=== PATIENT | female | born 1940 | race Asian ===

== ENCOUNTER 2020-12-14 08:39 | Inpatient (IN) | payer MEDICARE, OTHER ==
[2020-12-14] VITALS (8 sets, daily range): BP systolic 103–125; BP diastolic 31–67
[~2020-12-14] VITALS: Ht 160 cm; Wt 99.1 kg
[2020-12-14 10:05] LABS: BASO # 0.1 x10^3/uL (0.0-0.2); BASO % 2 % (0-3); EOS # 0.2 x10^3/uL (0.0-0.7); EOS % 6 % (0-3); HEMOGLOBIN 7.1 g/dL (12.0-15.5); LYMPH # 0.8 x10^3/uL (1.0-4.8); LYMPH % 18 % (24-48); MEAN CORPUSCULAR HEMOGLOBIN 32 pg (25-35); MEAN CORPUSCULAR HGB CONC 35 g/dL (31-37); MEAN CORPUSCULAR VOLUME 91 fL (79-100); MONO # 0.6 x10^3/uL (0.0-1.1); MONO % 14 % (0-9); NEUT # 2.7 x10^3/uL (1.8-7.7); NEUT % 61 % (31-73); PLATELET COUNT 221 x10^3/uL (140-400); RED BLOOD COUNT 2.23 x10^6/uL (3.50-5.40); RED CELL DISTRIBUTION WIDTH 16.9 % (11.5-14.5); WHITE BLOOD COUNT 4.4 x10^3/uL (4.0-11.0)
[2020-12-14 10:16] LABS: ANION GAP 5 (6-14); BLOOD UREA NITROGEN 55 mg/dL (7-20); BUN/CREATININE RATIO 25 (6-20); CALCIUM 7.7 mg/dL (8.5-10.1); CARBON DIOXIDE 27 mmol/L (21-32); CHLORIDE 90 mmol/L (98-107); CREATININE 2.2 mg/dL (0.6-1.0); GFR 21.6; GLUCOSE 94 mg/dL (70-99); POTASSIUM 4.7 mmol/L (3.5-5.1); SODIUM 122 mmol/L (136-145)
--- NOTE | 2020-12-14 10:20 | NUR ---
SOLANGE Garcia informed of critical Hct 20.4
[2020-12-14 10:21] LABS: ALBUMIN 2.2 g/dL (3.4-5.0); ALBUMIN/GLOBULIN RATIO 0.5 (1.0-1.7); ALK PHOS 69 U/L (46-116); AST (SGOT) 21 U/L (15-37); TOTAL BILIRUBIN 1.4 mg/dL (0.2-1.0); TOTAL PROTEIN 6.3 g/dL (6.4-8.2)
[2020-12-14 10:23] LABS: ALT (SGPT) < 6 U/L (14-59)
--- NOTE | 2020-12-14 10:25 | HP ---
DATE OF SERVICE: 12/14/2020 ADMIT DATE: 12/14/2020 HISTORY OF PRESENT ILLNESS: The patient is a 80-year-old female who is currently residing at [facility] after prolonged stay at [facility] where she was admitted on 11/16/2020 with septic shock due to complicated urinary tract infection. At that time, she was found to have ureteral stone and incidental right kidney mass. She also developed acute hypoxic respiratory failure and left side pleural effusion and acute diastolic congestive heart failure with an ejection fraction of 60-65%. While there, she also developed atrial fibrillation and acute on chronic kidney injury. She was treated with IV antibiotic and apparently had ureteric stent. She also developed non-ST segment elevation myocardial infarction requiring cardiac catheterization and stent deployment. Her stay was complicated by left lower extremity DVT, for which she was started on Xarelto and she did have also hypothyroidism and hyponatremia. However, after stabilization, she was transferred to [facility] to continue the process of rehabilitation. While there, her serum sodium was noted to be steadily declining. I saw her on 12/11 and her sodium was 127 and yesterday her sodium dropped down to 120 mEq per liter and therefore, the patient was transferred to [facility] for further evaluation and treatment. She was also diagnosed with C. diff colitis, for which we started her on oral vancomycin 125 mg 4 times a day with lactobacillus acidophilus twice a day. She continued to have loose bowel movement and her perianal area is markedly excoriated. She was admitted to [facility] for fluid restriction and to consult the Nephrology team to assist with the management of her worsening hyponatremia. We will continue obviously with oral vancomycin and other medications. PAST MEDICAL HISTORY: Significant for insulin-dependent diabetes mellitus complicated by retinopathy, neuropathy as well as nephropathy. The patient has stone in her left ureter, chronic kidney disease, chronic diastolic congestive heart failure, left lower extremity DVT, hypothyroidism. PAST SURGICAL HISTORY: Significant for breast biopsy, hysterectomy for endometrial cancer. She has also had left retroperitoneal hematoma while at the [facility]. ALLERGIES: SHE IS ALLERGIC TO LISINOPRIL, SULFA ANTIBIOTICS, AVOCADO AND TOMATO. MEDICATIONS: She is currently on following medications: She is on acetaminophen 500 mg every 4 hours as needed, amiodarone 200 mg once a day, atorvastatin calcium 80 mg at bedtime, cyclobenzaprine 5 mg 3 times a day, Humalog insulin 4 units subcutaneously before meals. She is on Januvia 25 mg once a day, lactobacillus acidophilus 1 capsule twice a day. She is on Lantus SoloStar 20 units twice a day. She is on levothyroxine 100 mcg once a day, loperamide 2 mg as needed for diarrhea, not to exceed 16 mg a day. She is on [place] 5/325 mg 1 tablet every 4 hours. She is on tamsulosin 0.4 mg once a day at bedtime, Toprol-XL 25 mg once a day. She is on vancomycin 125 mg p.o. 4 times a day, Xarelto 15 mg by mouth twice a day for 3 weeks and Xarelto 20 mg daily thereafter. REVIEW OF SYSTEMS: The patient stated that she is generally feeling much better compared to when she was at [facility]; however, she continued to have low back pain and continues to have loose bowel movement. PHYSICAL EXAMINATION: GENERAL: On examining her, she was pale, but not jaundiced or cyanosed. No thyromegaly. No jugular venous distention. She had bilateral lower limb edema. VITAL SIGNS: Her heart rate was 54, blood pressure was 103/37, her temperature was 98.5, oxygen saturation was 97% on room air. HEAD, EYES, EARS, NOSE AND THROAT: Showed she is normocephalic, atraumatic. NECK: Supple. HEART: Showed normal first and second heart sounds. No gallop, rub or murmur. CHEST: Shows central trachea, equal bilateral chest expansion, air entry, vesicular breath sounds. I could not appreciate any crepitation or rhonchi anteriorly. ABDOMEN: Distended, soft, nontender. NEUROLOGIC: She was awake, alert, responding appropriately. All her cranial nerves intact. Extremities: She moves all extremities without difficulty. She has marked periorbital edema and also bilateral lower extremity edema. SKIN: Her perianal area is markedly excoriated. ASSESSMENT AND PLAN: In summary, this is a 80-year-old female patient, a resident at [facility] who was admitted directly on account of worsening hyponatremia, continued recurrent bouts of loose bowel movement due to her Clostridium difficile colitis and worsening kidney function. My plan is obviously to continue with oral vancomycin. Continue with all her other medications. We will institute fluid restriction and will consult the mailmaster to assist with her management. RADHA DR: Jose Alfredo TID: [id number]
[2020-12-14 10:27] LABS: HEMATOCRIT 20.4 % (36.0-47.0)
[2020-12-14] MEDS ORDERED: ACET500T68 PO (11:29)
[2020-12-14] MEDS ORDERED: VANC125C3 PO (11:29)
[2020-12-14] MEDS ORDERED: AMIO200T53 PO (11:29)
[2020-12-14] MEDS ORDERED: HYDR-2759 PO (11:29)
[2020-12-14] MEDS ORDERED: METO-239 PO (11:29)
[2020-12-14] MEDS ORDERED: INSU100V8 SQ (11:29)
[2020-12-14] MEDS ORDERED: LIPITOR80 MG PO (11:29)
[2020-12-14] MEDS ORDERED: RIVA15TA PO (11:29)
[2020-12-14] MEDS ORDERED: LACT1CAP2 PO (11:29)
[2020-12-14] MEDS ORDERED: CYCL5TAB PO (11:29)
[2020-12-14] MEDS ORDERED: INSU100V6 SQ (11:29)
[2020-12-14] MEDS ORDERED: LEVO-101 PO (11:29)
[2020-12-14] MEDS ORDERED: SITA25TA PO (11:29)
[2020-12-14] MEDS ORDERED: TAMS0.4C97 PO (11:29)
[2020-12-14] MEDS ORDERED: ACETAMINOPHEN 500 MG TABLET PO PRN (11:30)
[2020-12-14] MEDS ORDERED: HYDROcodone/APAP 5/325MG 1 TAB TABLET PO PRN (11:30)
[2020-12-14] MEDS: AMIODARONE HCL 200 MG TABLET. PO SCH (12:00)
[2020-12-14] MEDS: RIVAROXABAN 15 MG TABLET. PO SCH ×2 (12:00→21:37)
[2020-12-14] MEDS: INSULIN LISPRO 300 UNITS/3 ML VIAL. SQ SCH ×2 (12:00→17:29)
[2020-12-14] MEDS ORDERED: CYCLOBENZAPRINE 10 MG TABLET. PO PRN (12:00)
[2020-12-14] MEDS: VANCOMYCIN 125 MG/2.5 ML ORAL SOLUTION. PO SCH ×3 (12:23→21:37)
[2020-12-14 12:44] LABS: % BANDS 4 % (0-9); % EOS 6 % (0-5); % LYMPHS 7 % (24-48); % METAS 1 % (0-0); % MONOS 15 % (0-10); % SEGS 67 % (35-66)
[2020-12-14 12:45] LABS: PLT ESTIMATE ADEQUATE (ADEQUATE)
--- NOTE | 2020-12-14 12:56 | RAD ---
INDICATION: Reason: worsening anemia on Xarelto with history of retroperitoneal bleeding / Spl. Instr uctions: / History: . COMPARISON: November 16, 2020 CT abdomen TECHNIQUE: Axial CT images obtained through the chest, abdomen and pelvis without contrast. One or more of the following individualized dose reduction techniques were utilized for this examinat ion: 1. Automated exposure control; 2. Adjustment of the mA and/or kV according to patient size; 3 . Use of iterative reconstruction technique. FINDINGS: Limited assessment of solid organ structures and vasculature secondary to lack of intravenous contras t. Mild patchy opacity at the left greater than right lung base with trace left pleural effusion. Fat-containing lesion within the musculature posterior to the left scapula measuring 24 mm which can be seen with causes such as lipoma. No pneumothorax. Calcific atherosclerosis throughout the vasculature including severe coronary artery calcific atheros clerosis. There is edema in the subcutaneous soft tissues bilaterally. Degenerative changes throughout the spine. Calcific atherosclerosis throughout the abdominal aorta. Subcutaneous edema to the fat. Gallstones are seen. Limited assessment of the pancreas without contrast. Spleen is visualized. Distention of the bilateral renal pelvis and ureter with left-sided nephroureteral stents. Urinary bladder is also dilated with urine and a small amount of air. Soft tissue lesion of the right kidney measuring approximately 23 mm. Interval development of a retroperitoneal hemorrhage on the left measuring approximately 18.5 cm cran iocaudal with maximum axial diameter of approximately 14 x 7 cm. This is seen throughout a large port ion of the abdomen and pelvis and displaces the left kidney anteriorly. There is a small amount of fr ee fluid within the left lower quadrant. Wall thickening of the rectum with some adjacent edema to the fat. There is a suspected small focus o f air within the retroperitoneal hemorrhage. No dilated loops of bowel to suggest obstruction. Degenerative changes of the hips. Multilevel central canal and neural foraminal stenosis from degenerative changes of spine. IMPRESSION: * Large left-sided retroperitoneal hemorrhage. * Severe dilatation of the urinary bladder with bilateral hydroureter and hydronephrosis. Would trena elate with renal function since bladder outlet obstruction or poor emptying could have this appearanc e. * Gallstone. * Wall thickening of the rectosigmoid region with adjacent edema to the fat. Would correlate with sy mptoms to ensure there is not a pathologic cause such as a distal colitis or lesion involving the dis darrel sigmoid to rectal region. Follow-up could be obtained to ensure this resolves. * Soft tissue density mass at the right kidney. The patient will need a follow-up nonemergent CT, MR I or ultrasound renal protocol to further assess since solid renal neoplasm such as oncocytoma or claudine al cell carcinoma could have this appearance. * Mild patchy airspace opacities left greater than right lung as well as trace left pleural effusion . The opacities could be from atelectasis or infiltrate. * Results called to the patient's floor at 12:50 PM on date of exam. Electronically signed by: Shin Coffman MD (12/14/2020 12:54 PM) [id number]
--- NOTE | 2020-12-14 15:58 | PDOC2 ---
CONSULT Date of Consult Date of Consult DATE: 12/14/20 TIME: 15:23 Reason for Consult Reason for Consult: CHRIS, HypoNatremia Referring Physician Referring Physician: Dr. Hess Identification/Chief Complaint Chief Complaint " I dont want to take any meds for increasing sodium levels if possible as they make me sick" Source Source: Chart review, Patient History of Present Illness Reason for Visit: Patient is a 80-year-old female who is currently residing at [facility] after prolonged complicated stay at [facility] where she was admitted on 11/16/2020 with septic shock due to complicated urinary tract infection. At that time, she was found to have ureteral stone and incidental right kidney mass. She was treated with IV antibiotic , seen by urology and had a ureteric stent She also developed acute hypoxic respiratory failure and left side pleural effusion and acute diastolic congestive heart failure with an ejection fraction of 60-65%. She also had a new onset atrial fibrillation. She required cardiac catheterization and PCI for non-ST segment elevation myocardial infarction . Her stay was further complicated by left lower extremity DVT, for which she was started on Xarelto She developed left retroperitoneal hematoma while at the [facility] She was seen by Deflector Operator for acute (Cr 2.4) on chronic kidney injury, and HypoNatremia - Na of 126 After stabilization, she was transferred to [facility] for rehabilitation. At the Rehab it was noted that her serum sodium was declining - on reviewing avilable records her Na was between 125 to 127 It was noted yesterday Na was down to 120 mEq/Lt and she was transferred to [facility] for further evaluation and treatment. She is also diagnosed with C. diff colitis and was started on oral vancomycin 125 at the Rehab with lactobacillus acidophilus twice a day. She continued to have loose bowel movement . She states she has at least 3 stools /day or more. Denies any N/V. No abdominal pain . No CP or SOB. She states prior to all this - admisison to [facility]- she was only on 4 meds . At [facility] she was on ALdactone as well. As per most current list she is not on Diuretics, No Antidepressants . Reports eating Normal diet .States drinks enough fluids, doesnt think it is excessive . Has LE edema bilateral Patient reports Dasilva was removed at [place] , had to be placed again at [facility] Past Medical History Past Medical History Significant for insulin-dependent diabetes mellitus complicated by retinopathy, neuropathy as well as nephropathy. The patient has stone in her left ureter, chronic kidney disease, chronic diastolic congestive heart failure, left lower extremity DVT, hypothyroidism. Past Surgical History Past Surgical History Significant for breast biopsy, hysterectomy for endometrial cancer. She has also had left retroperitoneal hematoma while at the [facility]. Current Medications Current Medications Allergies Allergies: Coded Allergies: Sulfa (Sulfonamide Antibiotics) (Verified Allergy, Intermediate, 12/14/20) avocado (Verified Allergy, Intermediate, 12/14/20) lisinopril (Verified Allergy, Intermediate, 12/14/20) tomato (Verified Allergy, Intermediate, 12/14/20) ROS Review of System As per HPI, rest of the ROS is negative Physical Exam Physical Exam General NAD , Obese HEEN OM moist, anicteric NECK: Supple. Lungs CTA, decreased at bases, Non labored, on RA CV S1S2 Abd Soft, NT, Obese Neuro : AXO x3, grossly normal Extremities: Bilat LE edema 2 + SKIN: perianal area is markedly excoriated (exam by primary) Dasilva + , No CVA or SP tenderness Vital Signs Vital Signs Date Time Temp Pulse Resp B/P (MAP) Pulse Ox O2 Delivery O2 Flow Rate FiO2 12/14/20 11:00 98.7 60 20 117/67 (84) 96 Room Air 98.7 Assessment & Plan CHRIS on CKD - Diagnosed recently in Nov during Hospitalization at [facility] (Cr 2.4) - 2/2 Urosepsis/Pyelonephritis /Recd Contrast for Cardiac cath / Hypotensive etc Creat on 12/09 2.7 --> 2.[address] scan Severe dilatation of the urinary bladder with bilateral hydroureter and hydronephrosis. Supportive care, strict I/O, Avoid nephrotoxins, Monitor HypoNatremia - Na at [facility] 126(no prior labs, patient denies Low Na in the past) ,UOsm was low at [facility] , Recent Na 122 Urinary retention (Dasilva was dced at [place], placed again at [facility] She reports DID not toleratE ? salt tablets .No Dx of CHF or Cirrhosis, No ETOH intake, Not on Psych meds , Diuretics held .Currently asymptomatic Recommend restrict fluid intake to 1500 mls , Monitor Soft tissue density mass at the right kidney. The patient will need a follow-up nonemergent CT, MRI or ultrasound renal protocol to further assess since solid renal neoplasm such as oncocytoma or renal cell carcinoma could have this appearance. Urology was consulted at [facility] Anemia - Hx of Retroperitoneal bleed recently at [facility]. Defer to Primary. CT scan at [facility] Large left-sided retroperitoneal hemorrhage. Defer to primary for fu Clostridium difficile colitis CAD recent Cardiac cath /PCI at [facility] New Dx of AFib at [facility] S/P Lt Thoracentesis Nov 2020 Recent Septic shock 2/2 Pyelonephritis and Lt Ureterolithiasis Labs Labs Laboratory Tests Test 12/14/20 09:37 12/14/20 09:50 12/14/20 11:59 Glucose (Fingerstick) 106 mg/dL (70-99) 135 mg/dL (70-99) White Blood Count 4.4 x10^3/uL (4.0-11.0) Red Blood Count 2.23 x10^6/uL (3.50-5.40) Hemoglobin 7.1 g/dL (12.0-15.5) Hematocrit 20.4 % (36.0-47.0) Mean Corpuscular Volume 91 fL (79-100) Mean Corpuscular Hemoglobin 32 pg (25-35) Mean Corpuscular Hemoglobin Concent 35 g/dL (31-37) Red Cell Distribution Width 16.9 % (11.5-14.5) Platelet Count 221 x10^3/uL (140-400) Neutrophils (%) (Auto) 61 % (31-73) Lymphocytes (%) (Auto) 18 % (24-48) Monocytes (%) (Auto) 14 % (0-9) Eosinophils (%) (Auto) 6 % (0-3) Basophils (%) (Auto) 2 % (0-3) Neutrophils # (Auto) 2.7 x10^3/uL (1.8-7.7) Lymphocytes # (Auto) 0.8 x10^3/uL (1.0-4.8) Monocytes # (Auto) 0.6 x10^3/uL (0.0-1.1) Eosinophils # (Auto) 0.2 x10^3/uL (0.0-0.7) Basophils # (Auto) 0.1 x10^3/uL (0.0-0.2) Segmented Neutrophils % 67 % (35-66) Band Neutrophils % 4 % (0-9) Lymphocytes % 7 % (24-48) Monocytes % 15 % (0-10) Eosinophils % 6 % (0-5) Metamyelocytes % 1 % (0-0) Platelet Estimate Adequate (ADEQUATE) Sodium Level 122 mmol/L (136-145) Potassium Level 4.7 mmol/L (3.5-5.1) Chloride Level 90 mmol/L (98-107) Carbon Dioxide Level 27 mmol/L (21-32) Anion Gap 5 (6-14) Blood Urea Nitrogen 55 mg/dL (7-20) Creatinine 2.2 mg/dL (0.6-1.0) Estimated GFR (Cockcroft-Gault) 21.6 BUN/Creatinine Ratio 25 (6-20) Glucose Level 94 mg/dL (70-99) Calcium Level 7.7 mg/dL (8.5-10.1) Total Bilirubin 1.4 mg/dL (0.2-1.0) Aspartate Amino Transf (AST/SGOT) 21 U/L (15-37) Alanine Aminotransferase (ALT/SGPT) < 6 U/L (14-59) Alkaline Phosphatase 69 U/L (46-116) Total Protein 6.3 g/dL (6.4-8.2) Albumin 2.2 g/dL (3.4-5.0) Albumin/Globulin Ratio 0.5 (1.0-1.7) Laboratory Tests Test 12/14/20 09:37 12/14/20 09:50 12/14/20 11:59 Glucose (Fingerstick) 106 mg/dL (70-99) 135 mg/dL (70-99) White Blood Count 4.4 x10^3/uL (4.0-11.0) Red Blood Count 2.23 x10^6/uL (3.50-5.40) Hemoglobin 7.1 g/dL (12.0-15.5) Hematocrit 20.4 % (36.0-47.0) Mean Corpuscular Volume 91 fL (79-100) Mean Corpuscular Hemoglobin 32 pg (25-35) Mean Corpuscular Hemoglobin Concent 35 g/dL (31-37) Red Cell Distribution Width 16.9 % (11.5-14.5) Platelet Count 221 x10^3/uL (140-400) Neutrophils (%) (Auto) 61 % (31-73) Lymphocytes (%) (Auto) 18 % (24-48) Monocytes (%) (Auto) 14 % (0-9) Eosinophils (%) (Auto) 6 % (0-3) Basophils (%) (Auto) 2 % (0-3) Neutrophils # (Auto) 2.7 x10^3/uL (1.8-7.7) Lymphocytes # (Auto) 0.8 x10^3/uL (1.0-4.8) Monocytes # (Auto) 0.6 x10^3/uL (0.0-1.1) Eosinophils # (Auto) 0.2 x10^3/uL (0.0-0.7) Basophils # (Auto) 0.1 x10^3/uL (0.0-0.2) Segmented Neutrophils % 67 % (35-66) Band Neutrophils % 4 % (0-9) Lymphocytes % 7 % (24-48) Monocytes % 15 % (0-10) Eosinophils % 6 % (0-5) Metamyelocytes % 1 % (0-0) Platelet Estimate Adequate (ADEQUATE) Sodium Level 122 mmol/L (136-145) Potassium Level 4.7 mmol/L (3.5-5.1) Chloride Level 90 mmol/L (98-107) Carbon Dioxide Level 27 mmol/L (21-32) Anion Gap 5 (6-14) Blood Urea Nitrogen 55 mg/dL (7-20) Creatinine 2.2 mg/dL (0.6-1.0) Estimated GFR (Cockcroft-Gault) 21.6 BUN/Creatinine Ratio 25 (6-20) Glucose Level 94 mg/dL (70-99) Calcium Level 7.7 mg/dL (8.5-10.1) Total Bilirubin 1.4 mg/dL (0.2-1.0) Aspartate Amino Transf (AST/SGOT) 21 U/L (15-37) Alanine Aminotransferase (ALT/SGPT) < 6 U/L (14-59) Alkaline Phosphatase 69 U/L (46-116) Total Protein 6.3 g/dL (6.4-8.2) Albumin 2.2 g/dL (3.4-5.0) Albumin/Globulin Ratio 0.5 (1.0-1.7) Review All relevant outside records, renal labs, imaging studies, telemetry/EKG's were reviewed. Images Images worsening anemia on Xarelto with history of retroperitoneal bleeding PROCEDURE: CT CHEST ABDOMEN PELVIS WO INDICATION: Reason: worsening anemia on Xarelto with history of retroperitoneal bleeding / Spl. Instructions: / History: . COMPARISON: November 16, 2020 CT abdomen TECHNIQUE: Axial CT images obtained through the chest, abdomen and pelvis without contrast. One or more of the following individualized dose reduction techniques were utilized for this examination: 1. Automated exposure control; 2. Adjustment of the mA and/or kV according to patient size; 3. Use of iterative reconstruction technique. FINDINGS: Limited assessment of solid organ structures and vasculature secondary to lack of intravenous contrast. Mild patchy opacity at the left greater than right lung base with trace left pleural effusion. Fat-containing lesion within the musculature posterior to the left scapula measuring 24 mm which can be seen with causes such as lipoma. No pneumothorax. Calcific atherosclerosis throughout the vasculature including severe coronary artery calcific atherosclerosis. There is edema in the subcutaneous soft tissues bilaterally. Degenerative changes throughout the spine. Calcific atherosclerosis throughout the abdominal aorta. Subcutaneous edema to the fat. Gallstones are seen. Limited assessment of the pancreas without contrast. Spleen is visualized. Distention of the bilateral renal pelvis and ureter with left-sided nephroureteral stents. Urinary bladder is also dilated with urine and a small amount of air. Soft tissue lesion of the right kidney measuring approximately 23 mm. Interval development of a retroperitoneal hemorrhage on the left measuring approximately 18.5 cm craniocaudal with maximum axial diameter of approximately 14 x 7 cm. This is seen throughout a large portion of the abdomen and pelvis and displaces the left kidney anteriorly. There is a small amount of free fluid within the left lower quadrant. Wall thickening of the rectum with some adjacent edema to the fat. There is a suspected small focus of air within the retroperitoneal hemorrhage. No dilated loops of bowel to suggest obstruction. Degenerative changes of the hips. Multilevel central canal and neural foraminal stenosis from degenerative changes of spine. IMPRESSION: * Large left-sided retroperitoneal hemorrhage. * Severe dilatation of the urinary bladder with bilateral hydroureter and hydronephrosis. Would correlate with renal function since bladder outlet obstruction or poor emptying could have this appearance. * Gallstone. * Wall thickening of the rectosigmoid region with adjacent edema to the fat. Would correlate with symptoms to ensure there is not a pathologic cause such as a distal colitis or lesion involving the distal sigmoid to rectal region. Follow-up could be obtained to ensure this resolves. * Soft tissue density mass at the right kidney. The patient will need a follow- up nonemergent CT, MRI or ultrasound renal protocol to further assess since solid renal neoplasm such as oncocytoma or renal cell carcinoma could have this appearance. * Mild patchy airspace opacities left greater than right lung as well as trace left pleural effusion. The opacities could be from atelectasis or infiltrate. * Results called to the patient's floor at 12:50 PM on date of exam. VAUGHN GROVES MD Dec 14, 2020 15:58
--- NOTE | 2020-12-14 16:06 | NUR ---
PT Screen completed. After review of medical chart and speaking with the RN, pt. would benefit from PT Evaluation to further assess PT needs. Please issue orders for PT/OT. Thank you
[2020-12-14 18:43] LABS: RED BLOOD COUNT 2.09 x10^6/uL (3.50-5.40); RED CELL DISTRIBUTION WIDTH 17.1 % (11.5-14.5); WHITE BLOOD COUNT 4.7 x10^3/uL (4.0-11.0)
[2020-12-14 18:48] LABS: HEMATOCRIT 19.1 % (36.0-47.0); HEMOGLOBIN 6.7 g/dL (12.0-15.5)
[2020-12-14] MEDS: TAMSULOSIN 0.4 MG CAP.ER.24H. PO SCH (21:36)
[2020-12-14] MEDS: LACTOBACILLUS RHAMNOSUS GG 1 CAPSULE. PO SCH (21:36)
[2020-12-14] MEDS: ATORVASTATIN CALCIUM 40 MG TABLET. PO SCH (21:37)
[2020-12-14] MEDS: METOPROLOL SUCC 24HR ER 25 MG TAB.ER.24H. PO SCH (21:48)
[2020-12-14] MEDS: INSULIN GLARGINE SYRINGE. SQ SCH (21:48)
[2020-12-15] VITALS (8 sets, daily range): BP systolic 83–169; BP diastolic 29–70
[2020-12-15 07:52] LABS: CALCIUM 7.7 mg/dL (8.5-10.1); CREATININE 1.9 mg/dL (0.6-1.0); GFR 25.6; POTASSIUM 4.8 mmol/L (3.5-5.1)
[2020-12-15] MEDS: INSULIN LISPRO 300 UNITS/3 ML VIAL. SQ SCH ×3 (08:00→17:00)
[2020-12-15] MEDS: RIVAROXABAN 15 MG TABLET. PO SCH ×2 (09:00→18:57)
[2020-12-15] MEDS: AMIODARONE HCL 200 MG TABLET. PO SCH (09:00)
[2020-12-15] MEDS: METOPROLOL SUCC 24HR ER 25 MG TAB.ER.24H. PO SCH (09:00)
[2020-12-15] MEDS: LEVOTHYROXINE 100 MCG TABLET PO SCH (09:09)
[2020-12-15] MEDS: LACTOBACILLUS RHAMNOSUS GG 1 CAPSULE. PO SCH ×2 (09:09→21:40)
[2020-12-15] MEDS: LINAGLIPTIN 5 MG TABLET PO SCH (09:09)
[2020-12-15] MEDS: VANCOMYCIN 125 MG/2.5 ML ORAL SOLUTION. PO SCH ×4 (09:10→21:40)
[2020-12-15] MEDS: INSULIN GLARGINE SYRINGE. SQ SCH ×2 (09:15→21:48)
[2020-12-15 09:26] LABS: HEMATOCRIT 23.2 % (36.0-47.0); HEMOGLOBIN 8.1 g/dL (12.0-15.5); RED BLOOD COUNT 2.56 x10^6/uL (3.50-5.40); RED CELL DISTRIBUTION WIDTH 16.4 % (11.5-14.5); WHITE BLOOD COUNT 4.5 x10^3/uL (4.0-11.0)
--- NOTE | 2020-12-15 11:42 | PDOC2 ---
CONSULT Date of Consult Date of Consult DATE: 12/15/20 TIME: 11:41 Reason for Consult Reason for Consult: Paroxysmal atrial fibrillation Referring Physician Referring Physician: Dr. Hess Identification/Chief Complaint Chief Complaint Hyponatremia Source Source: Chart review, Patient History of Present Illness Reason for Visit: 80-year-old female was recently admitted 11/16/2020 to [facility] with UTI/sepsis and was found to have ureteral stone. She was also found to be in acute on chronic diastolic heart failure, atrial fibrillation and non-STEMI. She apparently had a nuclear stress test at that time. Based on patient's description, she converted to sinus rhythm and was started on amiodarone for rhythm maintenance. She was also found to have left lower extremity DVT and was started on Xarelto which were later stopped due to retroperitoneal hematoma. She was transferred to [facility] and rehab where she was noted to have steadily declining sodium levels and was transferred to [facility] for further management. She was recently diagnosed with C. difficile colitis and treated with oral vancomycin. She continues to complain of loose bowel movements but denied any chest pain, orthopnea/PND, palpitations or syncope. Past Medical History Past Medical History Diabetes mellitus type 2, insulin-dependent, complicated by retinopathy, neuropathy and nephropathy Nephrolithiasis Chronic kidney disease Chronic diastolic heart failure Recent diagnosis of paroxysmal atrial fibrillation DVT Hypertension Hypothyroidism C. difficile colitis Past Surgical History Past Surgical History Breast biopsy Hysterectomy Family History Family History Not contributory Social History Social History Patient is a non-smoker nondrinker Current Medications Current Medications Current Medications Acetaminophen (Tylenol) 500 mg PRN Q4HRS PRN PO pain or fever; Start 12/14/20 at 11:30 Amiodarone HCl (Cordarone) 200 mg DAILY PO ; Start 12/14/20 at 12:00 Acetaminophen/ Hydrocodone Bitart (Lortab 5/325) 1 tab PRN Q4HRS PRN PO PAIN; Start 12/14/20 at 11:30 Insulin Glargine (Lantus Syringe) 20 unit BID SQ Last administered on 12/15/20at 09:15; Start 12/14/20 at 21:00 Insulin Human Lispro (HumaLOG) 4 units TIDWMEALS SQ Last administered on 12/14/20at 17:29; Start 12/14/20 at 12:00 Levothyroxine Sodium (Synthroid) 100 mcg DAILY PO Last administered on 12/15/20at 09:09; Start 12/15/20 at 09:00 Metoprolol Succinate (Toprol Xl) 25 mg DAILY PO ; Start 12/14/20 at 21:00 Rivaroxaban (Xarelto) 15 mg BID PO ; Start 12/14/20 at 12:00 Tamsulosin HCl (Flomax) 0.4 mg HS PO Last administered on 12/14/20at 21:36; Start 12/14/20 at 21:00 Atorvastatin Calcium (Lipitor) 80 mg QHS PO Last administered on 12/14/20at 21:37; Start 12/14/20 at 21:00 Cyclobenzaprine HCl (Flexeril) 10 mg PRN Q8HRS PRN PO MUSCLE SPASMS; Start 12/14/20 at 12:00 Lactobacillus Rhamnosus (Culturelle) 1 cap BID PO Last administered on 12/15/20at 09:09; Start 12/14/20 at 21:00 Linagliptin (Tradjenta) 5 mg DAILY PO Last administered on 12/15/20at 09:09; Start 12/15/20 at 09:00 Vancomycin HCl (Vancomycin Oral Solution) 125 mg [id number] PO Last administered on 12/15/20at 09:10; Start 12/14/20 at 13:00 Active Scripts Active Reported Xarelto (Rivaroxaban) 15 Mg Tablet 1 Tab PO BID 21 Days Vancomycin Hcl 125 Mg Capsule 1 Cap PO QID 10 Days Metoprolol Succinate ( Xl ) (Metoprolol Succinate) 25 Mg Tab.er.24h 1 Tab PO BID Flomax (Tamsulosin Hcl) 0.4 Mg Cap.er.24h 1 Cap PO HS Hydrocodone-Acetamin 5-325 mg (Hydrocodone/Acetaminophen) 1 Each Tablet 1 Each PO PRN Q4HRS PRN Synthroid (Levothyroxine Sodium) 100 Mcg Tablet 1 Tab PO DAILY Lantus (Insulin Glargine,Hum.rec.anlog) 100 Unit/1 Ml Vial 20 Unit SQ BID Acidophilus (Lactobacillus Acidophilus) 1 Each Capsule 1 Cap PO BID 14 Days Januvia (Sitagliptin Phosphate) 25 Mg Tablet 25 Mg PO DAILY Humalog (Insulin Lispro) 100 Unit/1 Ml Vial 4 Unit SQ TIDWMEALS Cyclobenzaprine Hcl 5 Mg Tablet 1 Tab PO PRN TID PRN Lipitor (Atorvastatin Calcium) 80 Mg Tablet 1 Tab PO HS Amiodarone Hcl 200 Mg Tablet 1 Tab PO DAILY Acetaminophen 500 Mg Tablet 1 Tab PO PRN Q4HRS PRN 15 Days Allergies Allergies: Coded Allergies: Sulfa (Sulfonamide Antibiotics) (Verified Allergy, Intermediate, 12/14/20) avocado (Verified Allergy, Intermediate, 12/14/20) lisinopril (Verified Allergy, Intermediate, 12/14/20) tomato (Verified Allergy, Intermediate, 12/14/20) ROS PSYCHOLOGICAL ROS: No: Hallucinations Eyes: No Loss of vision HEENT: No: Epistaxis Respiratory: No: Hemoptysis Cardiovascular: No Chest Pain Gastrointestinal: Yes Diarrhea; No Vomiting Genitourinary: No Hematuria Neurological: No Seizures Skin: No Rash Physical Exam General: Alert, No acute distress HEENT: Atraumatic Lungs: Clear to auscultation Heart: Regular rate Abdomen: Soft, No tenderness Extremities: Other (1-2+ pitting edema) Neuro: Normal speech Psych/Mental Status: Mood NL Vitals VITALS Vital Signs Date Time Temp Pulse Resp B/P (MAP) Pulse Ox O2 Delivery O2 Flow Rate FiO2 12/15/20 09:00 62 83/29 12/15/20 07:00 98.1 20 96 Room Air 98.1 Labs Labs Laboratory Tests Test 12/14/20 09:37 12/14/20 09:50 12/14/20 11:59 12/14/20 16:53 Glucose (Fingerstick) 106 mg/dL (70-99) 135 mg/dL (70-99) 149 mg/dL (70-99) White Blood Count 4.4 x10^3/uL (4.0-11.0) Red Blood Count 2.23 x10^6/uL (3.50-5.40) Hemoglobin 7.1 g/dL (12.0-15.5) Hematocrit 20.4 % (36.0-47.0) Mean Corpuscular Volume 91 fL (79-100) Mean Corpuscular Hemoglobin 32 pg (25-35) Mean Corpuscular Hemoglobin Concent 35 g/dL (31-37) Red Cell Distribution Width 16.9 % (11.5-14.5) Platelet Count 221 x10^3/uL (140-400) Neutrophils (%) (Auto) 61 % (31-73) Lymphocytes (%) (Auto) 18 % (24-48) Monocytes (%) (Auto) 14 % (0-9) Eosinophils (%) (Auto) 6 % (0-3) Basophils (%) (Auto) 2 % (0-3) Neutrophils # (Auto) 2.7 x10^3/uL (1.8-7.7) Lymphocytes # (Auto) 0.8 x10^3/uL (1.0-4.8) Monocytes # (Auto) 0.6 x10^3/uL (0.0-1.1) Eosinophils # (Auto) 0.2 x10^3/uL (0.0-0.7) Basophils # (Auto) 0.1 x10^3/uL (0.0-0.2) Segmented Neutrophils % 67 % (35-66) Band Neutrophils % 4 % (0-9) Lymphocytes % 7 % (24-48) Monocytes % 15 % (0-10) Eosinophils % 6 % (0-5) Metamyelocytes % 1 % (0-0) Platelet Estimate Adequate (ADEQUATE) Sodium Level 122 mmol/L (136-145) Potassium Level 4.7 mmol/L (3.5-5.1) Chloride Level 90 mmol/L (98-107) Carbon Dioxide Level 27 mmol/L (21-32) Anion Gap 5 (6-14) Blood Urea Nitrogen 55 mg/dL (7-20) Creatinine 2.2 mg/dL (0.6-1.0) Estimated GFR (Cockcroft-Gault) 21.6 BUN/Creatinine Ratio 25 (6-20) Glucose Level 94 mg/dL (70-99) Calcium Level 7.7 mg/dL (8.5-10.1) Total Bilirubin 1.4 mg/dL (0.2-1.0) Aspartate Amino Transf (AST/SGOT) 21 U/L (15-37) Alanine Aminotransferase (ALT/SGPT) < 6 U/L (14-59) Alkaline Phosphatase 69 U/L (46-116) Total Protein 6.3 g/dL (6.4-8.2) Albumin 2.2 g/dL (3.4-5.0) Albumin/Globulin Ratio 0.5 (1.0-1.7) Test 12/14/20 18:00 12/14/20 20:11 12/15/20 06:50 12/15/20 07:37 White Blood Count 4.7 x10^3/uL (4.0-11.0) 4.5 x10^3/uL (4.0-11.0) Red Blood Count 2.09 x10^6/uL (3.50-5.40) 2.56 x10^6/uL (3.50-5.40) Hemoglobin 6.7 g/dL (12.0-15.5) 8.1 g/dL (12.0-15.5) Hematocrit 19.1 % (36.0-47.0) 23.2 % (36.0-47.0) Mean Corpuscular Volume 92 fL (79-100) 91 fL (79-100) Mean Corpuscular Hemoglobin 32 pg (25-35) 32 pg (25-35) Mean Corpuscular Hemoglobin Concent 35 g/dL (31-37) 35 g/dL (31-37) Red Cell Distribution Width 17.1 % (11.5-14.5) 16.4 % (11.5-14.5) Platelet Count 206 x10^3/uL (140-400) 208 x10^3/uL (140-400) Glucose (Fingerstick) 161 mg/dL (70-99) 128 mg/dL (70-99) Sodium Level 124 mmol/L (136-145) Potassium Level 4.8 mmol/L (3.5-5.1) Chloride Level 93 mmol/L (98-107) Carbon Dioxide Level 28 mmol/L (21-32) Anion Gap 3 (6-14) Blood Urea Nitrogen 43 mg/dL (7-20) Creatinine 1.9 mg/dL (0.6-1.0) Estimated GFR (Cockcroft-Gault) 25.6 Glucose Level 98 mg/dL (70-99) Calcium Level 7.7 mg/dL (8.5-10.1) Laboratory Tests Test 12/14/20 11:59 12/14/20 16:53 12/14/20 18:00 12/14/20 20:11 Glucose (Fingerstick) 135 mg/dL (70-99) 149 mg/dL (70-99) 161 mg/dL (70-99) White Blood Count 4.7 x10^3/uL (4.0-11.0) Red Blood Count 2.09 x10^6/uL (3.50-5.40) Hemoglobin 6.7 g/dL (12.0-15.5) Hematocrit 19.1 % (36.0-47.0) Mean Corpuscular Volume 92 fL (79-100) Mean Corpuscular Hemoglobin 32 pg (25-35) Mean Corpuscular Hemoglobin Concent 35 g/dL (31-37) Red Cell Distribution Width 17.1 % (11.5-14.5) Platelet Count 206 x10^3/uL (140-400) Test 12/15/20 06:50 12/15/20 07:37 White Blood Count 4.5 x10^3/uL (4.0-11.0) Red Blood Count 2.56 x10^6/uL (3.50-5.40) Hemoglobin 8.1 g/dL (12.0-15.5) Hematocrit 23.2 % (36.0-47.0) Mean Corpuscular Volume 91 fL (79-100) Mean Corpuscular Hemoglobin 32 pg (25-35) Mean Corpuscular Hemoglobin Concent 35 g/dL (31-37) Red Cell Distribution Width 16.4 % (11.5-14.5) Platelet Count 208 x10^3/uL (140-400) Sodium Level 124 mmol/L (136-145) Potassium Level 4.8 mmol/L (3.5-5.1) Chloride Level 93 mmol/L (98-107) Carbon Dioxide Level 28 mmol/L (21-32) Anion Gap 3 (6-14) Blood Urea Nitrogen 43 mg/dL (7-20) Creatinine 1.9 mg/dL (0.6-1.0) Estimated GFR (Cockcroft-Gault) 25.6 Glucose Level 98 mg/dL (70-99) Calcium Level 7.7 mg/dL (8.5-10.1) Glucose (Fingerstick) 128 mg/dL (70-99) Assessment/Plan Assessment/Plan 1. Paroxysmal atrial fibrillation: Presently in sinus rhythm. Continue amiodarone for rhythm maintenance. She is a poor candidate for long-term anticoagulation secondary to retroperitoneal hematoma. Recent 2D echo showed LVEF 60 to 65%. We will consider outpatient referral for left atrial appendage closure. 2. Chronic diastolic heart failure: Appears to be clinically well compensated. Her bilateral lower extremity edema is probably secondary to hypoalbuminemia. She is currently on fluid restriction secondary to hyponatremia. If edema worsens, will consider albumin infusion and Lasix. 3. Recent non-STEMI: Most probably demand ischemia. Nuclear stress test apparently was normal. We will obtain records from [facility]. 4. Acute on chronic renal insufficiency: CT abdomen showed bilateral hydronephrosis and hydroureters. Nephrology team following. 5. Hyponatremia: Agree with fluid restriction 6. Hypertension: Controlled 7. Recent DVT: Consider IVC filter placement since she is a poor candidate for long-term anticoagulation 8. Hypothyroidism: Continue levothyroxine 9. Hyperlipidemia: Continue statins 10. Diabetes mellitus type 2: Treat per IM 11. C. difficile colitis: On oral vancomycin Thank you for your consultation RIKI RENDON MD Dec 15, 2020 11:42
--- NOTE | 2020-12-15 12:53 | PDOC ---
DATE OF SERVICE DATE: 12/15/20 TIME: 12:52 SUBJECTIVE ROS stable , No complaints OBJECTIVE Vital Signs Vital Signs Date Time Temp Pulse Resp B/P (MAP) Pulse Ox O2 Delivery O2 Flow Rate FiO2 12/15/20 11:00 98.9 67 20 116/35 (62) 95 Room Air 98.9 I & 0 Intake and Output 12/15/20 07:00 Intake Total 750 ml Output Total 3500 ml Balance -2750 ml Intake Oral 720 ml Blood Product IV Normal Saline Flush 30 ml Output Urine Total 3500 ml # Bowel Movements 2 PHYSICAL EXAM Physical Exam General NAD , Obese HEEN OM moist, anicteric NECK: Supple. Lungs CTA, decreased at bases, Non labored, on RA CV S1S2 Abd Soft, NT, Obese Neuro : AXO x3, grossly normal Extremities: Bilat LE edema 2 + SKIN: perianal area is markedly excoriated (exam by primary) Dasilva + , No CVA or SP tenderness DIAGNOSIS/ASSESSMENT Assessment & Plan CHRIS on CKD - Diagnosed recently in Nov during Hospitalization at [facility] (Cr 2.4) - 2/2 Urosepsis/Pyelonephritis /Recd Contrast for Cardiac cath / Hypotensive etc Creat on 12/09 2.7 --> 2.2 -->1.9 Ct scan Severe dilatation of the urinary bladder with bilateral hydroureter and hydronephrosis. Supportive care, strict I/O, Avoid nephrotoxins, Monitor HypoNatremia - Na at [facility] 126(no prior labs, patient denies Low Na in the past) ,UOsm was low at [facility] , Na 120 POA , Urinary retention (Dasilva was dced at [place], placed again at [facility] -, Na improved to 124, Diuretics held .Currently asymptomatic. Restrict free fluid intake to 1500 mls , Start IV NS - dw RN Soft tissue density mass at the right kidney. The patient will need a follow-up nonemergent CT, MRI or ultrasound renal protocol to further assess since solid renal neoplasm such as oncocytoma or renal cell carcinoma could have this appearance. Urology was consulted at [facility] Anemia - Hx of Retroperitoneal bleed recently at [facility]. Defer to Primary. CT scan at [facility] Large left-sided retroperitoneal hemorrhage. Defer to primary for fu Clostridium difficile colitis CAD recent Cardiac cath /PCI at [facility] New Dx of AFib at [facility] S/P Lt Thoracentesis Nov 2020 Recent Septic shock 2/2 Pyelonephritis and Lt Ureterolithiasis COMMENT/RELEVANT DATA Meds Current Medications Medications (Trade) Dose Ordered Sig/Jose Alberto Start Time Stop Time Status Last Admin Dose Admin Acetaminophen (Tylenol) 500 mg PRN Q4HRS PRN 12/14/20 11:30 Acetaminophen/ Hydrocodone Bitart (Lortab 5/325) 1 tab PRN Q4HRS PRN 12/14/20 11:30 Amiodarone HCl (Cordarone) 200 mg DAILY 12/14/20 12:00 Atorvastatin Calcium (Lipitor) 80 mg QHS 12/14/20 21:00 12/14/20 21:37 80 MG Cyclobenzaprine HCl (Flexeril) 10 mg PRN Q8HRS PRN 12/14/20 12:00 Insulin Glargine (Lantus Syringe) 20 unit BID 12/14/20 21:00 12/15/20 09:15 20 UNIT Insulin Human Lispro (HumaLOG) 4 units TIDWMEALS 12/14/20 12:00 12/15/20 12:08 4 UNITS Lactobacillus Rhamnosus (Culturelle) 1 cap BID 12/14/20 21:00 12/15/20 09:09 1 CAP Levothyroxine Sodium (Synthroid) 100 mcg DAILY 12/15/20 09:00 12/15/20 09:09 100 MCG Linagliptin (Tradjenta) 5 mg DAILY 12/15/20 09:00 12/15/20 09:09 5 MG Metoprolol Succinate (Toprol Xl) 25 mg DAILY 12/14/20 21:00 Rivaroxaban (Xarelto) 15 mg BID 12/14/20 12:00 Tamsulosin HCl (Flomax) 0.4 mg HS 12/14/20 21:00 12/14/20 21:36 0.4 MG Vancomycin HCl (Vancomycin Oral Solution) 125 mg [id number] 12/14/20 13:00 12/15/20 12:02 125 MG Lab Laboratory Tests Test 12/14/20 16:53 12/14/20 18:00 12/14/20 20:11 12/15/20 06:50 Glucose (Fingerstick) 149 mg/dL (70-99) 161 mg/dL (70-99) White Blood Count 4.7 x10^3/uL (4.0-11.0) 4.5 x10^3/uL (4.0-11.0) Red Blood Count 2.09 x10^6/uL (3.50-5.40) 2.56 x10^6/uL (3.50-5.40) Hemoglobin 6.7 g/dL (12.0-15.5) 8.1 g/dL (12.0-15.5) Hematocrit 19.1 % (36.0-47.0) 23.2 % (36.0-47.0) Mean Corpuscular Volume 92 fL (79-100) 91 fL (79-100) Mean Corpuscular Hemoglobin 32 pg (25-35) 32 pg (25-35) Mean Corpuscular Hemoglobin Concent 35 g/dL (31-37) 35 g/dL (31-37) Red Cell Distribution Width 17.1 % (11.5-14.5) 16.4 % (11.5-14.5) Platelet Count 206 x10^3/uL (140-400) 208 x10^3/uL (140-400) Sodium Level 124 mmol/L (136-145) Potassium Level 4.8 mmol/L (3.5-5.1) Chloride Level 93 mmol/L (98-107) Carbon Dioxide Level 28 mmol/L (21-32) Anion Gap 3 (6-14) Blood Urea Nitrogen 43 mg/dL (7-20) Creatinine 1.9 mg/dL (0.6-1.0) Estimated GFR (Cockcroft-Gault) 25.6 Glucose Level 98 mg/dL (70-99) Calcium Level 7.7 mg/dL (8.5-10.1) Test 12/15/20 07:37 12/15/20 11:47 Glucose (Fingerstick) 128 mg/dL (70-99) 155 mg/dL (70-99) Results All relevant outside records, renal labs, imaging studies, telemetry/EKG's were reviewed. Justicifation of Admission Dx: Justifications for Admission: Justification of Admission Dx: N/A VAUGHN GROVES MD Dec 15, 2020 12:53
--- NOTE | 2020-12-15 13:46 | PN ---
DATE: 12/15/2020 SUBJECTIVE: The patient is resting, slightly propped up in bed, in no apparent distress. She is awake and alert. On questioning her, she denied any complaint, in particular, denied any chest pain, shortness of breath, cough, phlegm or hemoptysis. The nursing staff stated that she continued to have loose bowel movement. Yesterday, she had about 5 episodes of diarrhea and this morning, she has one so far. Her H and H has dropped yesterday from 7.1 and 20.4 down to 6.7 and 19.1 and did receive 1 unit of packed RBCs. She was seen by the latin professor and she was put on a fluid restriction and her serum sodium has risen slightly from 120 to 124. PHYSICAL EXAMINATION: GENERAL: When I examined her this morning, she looked pale, not jaundiced, cyanosed, no lymphadenopathy, no thyromegaly, no jugular venous distention, but generalized anasarca. VITAL SIGNS: Her heart rate is 62, blood pressure was 83/29, temperature was 98.1, respiratory rate was 20 and oxygen saturation was 96% on room air. HEAD, EYES, EARS, NOSE AND THROAT: Normocephalic, atraumatic. NECK: Supple. HEART: Showed normal first and second heart sounds, no gallop, rub or murmur. CHEST: Shows central trachea. Good equal bilateral chest expansion, air entry, vesicular breath sounds. No crepitation or rhonchi. ABDOMEN: Distended, soft, nontender. NEUROLOGIC: She is awake, alert, responding appropriately. Cranial nerves intact. She moves extremities without difficulty. She does have an indwelling Dasilva catheter. EXTREMITIES: Examination of the lower extremities showed no clubbing or cyanosis, but bilateral lower limb edema. She does have also pressure ulcers on both gluteal areas. Her intake over the last 24 hours was 750, output was 3500. LABORATORY DATA: As of this morning, her serum sodium was 124, potassium 4.8, chloride 93, bicarbonate 28, anion gap of 3, BUN 43, and creatinine 1.9. Estimated GFR was 25 mL per minute. Her glucose was 98 and calcium was 7.7. As of yesterday, her white cell count was 4700, hemoglobin 6.7, hematocrit 19.1, MCV 92, and a platelet count 206,000. Today's labs are still pending at the time of this dictation. ASSESSMENT: This is a 80-year-old female patient, a resident at [facility] who was admitted directly to [facility] with: 1. Hyponatremia with a serum sodium of 120 that is improving and today it is 124 mEq per liter. 2. Acute on chronic kidney injury, multifactorial. The patient did have severe urinary tract infection and pyelonephritis. Did receive contrast for cardiac catheterization and was hypotensive at that time and her creatinine while at [facility] peaked at 2.7. On admission, she was 2.21. This morning, the creatinine came down to 1.9 mg/dL. 3. Bladder outlet obstruction with bilateral hydroureter and hydronephrosis, status post drainage draining about 1500 mL of urine. The patient has also ureteral stent on the left side. 4. Anemia. The patient has had large retroperitoneal hematoma, has multiple episodes of nosebleed as she is on Xarelto. She did receive 1 unit of packed RBCs yesterday. I held Xarelto. I have consulted the director of education as well as the founder ceo & president as she probably needs an IVC filter and probably a Watchman procedure. She went into atrial fibrillation with rapid ventricular response, treated with cardioversion at [facility]. 5. Clostridium difficile colitis, continued to have diarrhea and she is now on oral vancomycin. 6. Coronary artery disease, status post cardiac catheterization with PCI and stent deployment at [facility]. She does have also history of large left sided pleural effusion, status post thoracentesis on 11/2020. PLAN: To continue with fluid restriction. I will repeat her H and H this evening and if her hemoglobin is 7 or less than 7, we will transfuse her blood. The patient is now in sinus bradycardia, so we held her beta blockers. Meanwhile, we will continue to monitor her blood sugar and adjust insulin as needed. Continue with amiodarone. Continue with pain management. Continue with wound care. I have consulted the director of education as well as the founder ceo & president as I feel that the patient will benefit from an IVC filter as well as Watchman procedure given that she continued to bleed and has large retroperitoneal hematoma. LOGAN DR: Jose Alfredo TID: [id number]
[2020-12-15 14:59] LABS: BILIRUBIN,URINE NEGATIVE (NEG); CLARITY,URINE TURBID; COLOR,URINE YELLOW; NITRITE,URINE NEGATIVE (NEG); PROTEIN,URINE 30 mg/dL (NEG-TRACE); UROBILINOGEN,URINE 0.2 mg/dL (0.2 mg/dL)
[2020-12-15] MEDS: IV NORMAL SALINE 1000ML BAG 1,000 ML IV SCH (15:00)
[2020-12-15 15:19] LABS: BACTERIA,URINE MODERATE /HPF (0-FEW); RBC,URINE >40 /HPF (0-2); WBC,URINE FIELD OBSCURED /HPF (0-4); YEAST,URINE PRESENT /HPF
[2020-12-15 18:50] LABS: HEMATOCRIT 23.7 % (36.0-47.0); HEMOGLOBIN 8.2 g/dL (12.0-15.5)
[2020-12-15] MEDS: ATORVASTATIN CALCIUM 40 MG TABLET. PO SCH (21:40)
[2020-12-15] MEDS: TAMSULOSIN 0.4 MG CAP.ER.24H. PO SCH (21:41)
[2020-12-16 03:00] VITALS: BP 129/42
[2020-12-16] MEDS: IV NORMAL SALINE 1000ML BAG 1,000 ML IV SCH ×2 (04:50→21:35)
[2020-12-16 07:00] VITALS: BP 97/33
[2020-12-16 07:05] LABS: HEMATOCRIT 23.1 % (36.0-47.0); HEMOGLOBIN 8.1 g/dL (12.0-15.5); RED BLOOD COUNT 2.5 x10^6/uL (3.50-5.40); RED CELL DISTRIBUTION WIDTH 16.9 % (11.5-14.5); WHITE BLOOD COUNT 5.1 x10^3/uL (4.0-11.0)
[2020-12-16 07:26] LABS: ALBUMIN/GLOBULIN RATIO 0.5 (1.0-1.7); CALCIUM 7.6 mg/dL (8.5-10.1); CREATININE 1.6 mg/dL (0.6-1.0); GFR 31.2; POTASSIUM 4.5 mmol/L (3.5-5.1); TOTAL BILIRUBIN 1.2 mg/dL (0.2-1.0); TOTAL PROTEIN 5.7 g/dL (6.4-8.2)
[2020-12-16] MEDS: INSULIN LISPRO 300 UNITS/3 ML VIAL. SQ SCH ×3 (08:00→17:00)
[2020-12-16] MEDS: VANCOMYCIN 125 MG/2.5 ML ORAL SOLUTION. PO SCH ×4 (08:16→21:35)
[2020-12-16] MEDS: LACTOBACILLUS RHAMNOSUS GG 1 CAPSULE. PO SCH ×2 (08:16→21:35)
[2020-12-16] MEDS: LINAGLIPTIN 5 MG TABLET PO SCH (08:16)
[2020-12-16] MEDS: LEVOTHYROXINE 100 MCG TABLET PO SCH (08:16)
[2020-12-16] MEDS: RIVAROXABAN 15 MG TABLET. PO SCH (08:17)
[2020-12-16] MEDS: INSULIN GLARGINE SYRINGE. SQ SCH ×2 (09:29→21:47)
--- NOTE | 2020-12-16 10:14 | RAD ---
US BILATERAL LOWEREXTREMITY VENOUS DOPPLER History: Reason: RECENT DVT NOTED AT OTHER FACILITY; MAY NEED IVC FILTER PLACED / Spl. Instructions: / History: Comparison: None. Technique: Multiple longitudinal and transverse high resolution real-time images of the venous system of bilateral lower extremity were obtained with color and Doppler sampling. Findings: The common femoral, superficial femoral, popliteal and proximal calf veins are all patent and demonst rate normal flow and compressibility. Normal respiratory phasicity and augmentation is present. Bilateral lower extremity subcutaneous edema. Impression: 1. No evidence of deep vein thrombosis. Electronically signed by: Eliecer Farias DO (12/16/2020 10:12 AM) [id number]
--- NOTE | 2020-12-16 10:36 | PDOC ---
PROGRESS NOTES Date of Service: DATE: 12/16/20 TIME: 10:36 Subjective Subjective Feeling better today. Continues to have diarrhea. Objective Objective Vital Signs Date Time Temp Pulse Resp B/P (MAP) Pulse Ox O2 Delivery O2 Flow Rate FiO2 12/16/20 07:00 98.2 74 18 97/33 (54) 95 Room Air 98.2 Intake and Output 12/16/20 07:00 Output Total 4420 ml Balance -4420 ml Output Urine Total 4420 ml Physical Exam Abdomen: Soft, No tenderness Heart: Regular rate Extremities: Other (1-2+ pitting edema) General: Alert, No acute distress HEENT: Atraumatic Lungs: Clear to auscultation Neuro: Normal speech Psych/Mental Status: Mood NL Assessment Assessment 1. Paroxysmal atrial fibrillation: Presently in sinus rhythm. Continue amiodarone for rhythm maintenance. She is a poor candidate for long-term anticoagulation secondary to retroperitoneal hematoma. Recent 2D echo showed L VEF 60 to 65%. We will consider outpatient referral for left atrial appendage closure. 2. Chronic diastolic heart failure: Appears to be clinically well compensated. Her bilateral lower extremity edema is probably secondary to hypoalbuminemia. She is currently on fluid restriction secondary to hyponatremia. If edema worsens, will consider albumin infusion and Lasix. 3. Recent non-STEMI: Most probably demand ischemia. Nuclear stress test apparently was normal. We will obtain records from [facility]. 4. Acute on chronic renal insufficiency: CT abdomen showed bilateral hydronephrosis and hydroureters. Nephrology team following. 5. Hyponatremia: Sodium 128 today. Continue fluid restriction. 6. Hypertension: Controlled 7. Recent DVT: Consider IVC filter placement since she is a poor candidate for long-term anticoagulation 8. Hypothyroidism: Continue levothyroxine 9. Hyperlipidemia: Continue statins 10. Diabetes mellitus type 2: Treat per IM 11. C. difficile colitis: On oral vancomycin Comment Review of Relevant I have reviewed the following items chuck (where applicable) has been applied. Labs Laboratory Tests Test 12/15/20 11:47 12/15/20 14:15 12/15/20 16:42 12/15/20 18:10 Glucose (Fingerstick) 155 mg/dL (70-99) 129 mg/dL (70-99) Urine Collection Type Unknown Urine Color Yellow Urine Clarity Turbid Urine pH 6.0 (<5.0-8.0) Urine Specific [place] <=1.005 (1.000-1.030) Urine Protein 30 mg/dL (NEG-TRACE) Urine Glucose (UA) 100 mg/dL (NEG) Urine Ketones (Stick) Negative mg/dL (NEG) Urine Blood Large (NEG) Urine Nitrite Negative (NEG) Urine Bilirubin Negative (NEG) Urine Urobilinogen Dipstick 0.2 mg/dL (0.2 mg/dL) Urine Leukocyte Esterase Large (NEG) Urine RBC >40 /HPF (0-2) Urine WBC Field obscured /HPF (0-4) Urine Squamous Epithelial Cells Few /LPF Urine Bacteria Moderate /HPF (0-FEW) Urine Yeast Present /HPF Hemoglobin 8.2 g/dL (12.0-15.5) Hematocrit 23.7 % (36.0-47.0) Test 12/15/20 20:18 12/16/20 05:30 Glucose (Fingerstick) 142 mg/dL (70-99) White Blood Count 5.1 x10^3/uL (4.0-11.0) Red Blood Count 2.50 x10^6/uL (3.50-5.40) Hemoglobin 8.1 g/dL (12.0-15.5) Hematocrit 23.1 % (36.0-47.0) Mean Corpuscular Volume 92 fL (79-100) Mean Corpuscular Hemoglobin 32 pg (25-35) Mean Corpuscular Hemoglobin Concent 35 g/dL (31-37) Red Cell Distribution Width 16.9 % (11.5-14.5) Platelet Count 204 x10^3/uL (140-400) Sodium Level 128 mmol/L (136-145) Potassium Level 4.5 mmol/L (3.5-5.1) Chloride Level 97 mmol/L (98-107) Carbon Dioxide Level 30 mmol/L (21-32) Anion Gap 1 (6-14) Blood Urea Nitrogen 33 mg/dL (7-20) Creatinine 1.6 mg/dL (0.6-1.0) Estimated GFR (Cockcroft-Gault) 31.2 BUN/Creatinine Ratio 21 (6-20) Glucose Level 84 mg/dL (70-99) Calcium Level 7.6 mg/dL (8.5-10.1) Total Bilirubin 1.2 mg/dL (0.2-1.0) Aspartate Amino Transf (AST/SGOT) 24 U/L (15-37) Alanine Aminotransferase (ALT/SGPT) 20 U/L (14-59) Alkaline Phosphatase 65 U/L (46-116) Total Protein 5.7 g/dL (6.4-8.2) Albumin 2.0 g/dL (3.4-5.0) Albumin/Globulin Ratio 0.5 (1.0-1.7) Thyroid Stimulating Hormone (TSH) 3.861 uIU/mL (0.358-3.74) Medications Current Medications Ascorbic Acid (Vitamin C) 500 mg DAILY PO ; Start 12/16/20 at 10:00 Multivitamins (Thera M Plus) 1 tab DAILY PO ; Start 12/16/20 at 10:00 Sodium Chloride 1,000 ml @ 75 mls/hr [id number] IV Last administered on 12/16/20at 04:50; Start 12/15/20 at 15:00 Vitals/I & O Vital Sign - Last 24 Hours 12/15/20 12/15/20 12/15/20 12/15/20 11:00 15:00 19:00 20:00 Temp 98.9 98.5 98.2 98.9 98.5 98.2 Pulse 67 73 74 Resp 20 20 18 B/P (MAP) 116/35 (62) 133/40 (71) 124/37 (66) Pulse Ox 95 96 100 O2 Delivery Room Air Room Air Room Air Room Air 12/15/20 12/16/20 12/16/20 23:00 03:00 07:00 Temp 98.1 98.2 98.2 98.1 98.2 98.2 Pulse 71 75 74 Resp 20 18 18 B/P (MAP) 121/45 (70) 129/42 (71) 97/33 (54) Pulse Ox 96 94 95 O2 Delivery Room Air Room Air Room Air Intake and Output 12/15/20 12/15/20 12/16/20 15:00 23:00 07:00 Output Total 1520 ml 950 ml 1950 ml Balance -1520 ml -950 ml -1950 ml RIKI RENDON MD Dec 16, 2020 10:36
--- NOTE | 2020-12-16 10:38 | PDOC ---
Renal-Progress Notes Subjective Notes Notes NO NEW COMPLAINTS History of Present Illness Hx of present illness STABLE Vitals Vitals Vital Signs Date Time Temp Pulse Resp B/P (MAP) Pulse Ox O2 Delivery O2 Flow Rate FiO2 12/16/20 07:00 98.2 74 18 97/33 (54) 95 Room Air 98.2 Weight Weight [ ] I.O. Intake and Output Intake and Output 12/16/20 07:00 Output Total 4420 ml Balance -4420 ml Output Urine Total 4420 ml Labs Labs Laboratory Tests Test 12/15/20 11:47 12/15/20 14:15 12/15/20 16:42 12/15/20 18:10 Glucose (Fingerstick) 155 mg/dL (70-99) 129 mg/dL (70-99) Urine Collection Type Unknown Urine Color Yellow Urine Clarity Turbid Urine pH 6.0 (<5.0-8.0) Urine Specific [place] <=1.005 (1.000-1.030) Urine Protein 30 mg/dL (NEG-TRACE) Urine Glucose (UA) 100 mg/dL (NEG) Urine Ketones (Stick) Negative mg/dL (NEG) Urine Blood Large (NEG) Urine Nitrite Negative (NEG) Urine Bilirubin Negative (NEG) Urine Urobilinogen Dipstick 0.2 mg/dL (0.2 mg/dL) Urine Leukocyte Esterase Large (NEG) Urine RBC >40 /HPF (0-2) Urine WBC Field obscured /HPF (0-4) Urine Squamous Epithelial Cells Few /LPF Urine Bacteria Moderate /HPF (0-FEW) Urine Yeast Present /HPF Hemoglobin 8.2 g/dL (12.0-15.5) Hematocrit 23.7 % (36.0-47.0) Test 12/15/20 20:18 12/16/20 05:30 Glucose (Fingerstick) 142 mg/dL (70-99) White Blood Count 5.1 x10^3/uL (4.0-11.0) Red Blood Count 2.50 x10^6/uL (3.50-5.40) Hemoglobin 8.1 g/dL (12.0-15.5) Hematocrit 23.1 % (36.0-47.0) Mean Corpuscular Volume 92 fL (79-100) Mean Corpuscular Hemoglobin 32 pg (25-35) Mean Corpuscular Hemoglobin Concent 35 g/dL (31-37) Red Cell Distribution Width 16.9 % (11.5-14.5) Platelet Count 204 x10^3/uL (140-400) Sodium Level 128 mmol/L (136-145) Potassium Level 4.5 mmol/L (3.5-5.1) Chloride Level 97 mmol/L (98-107) Carbon Dioxide Level 30 mmol/L (21-32) Anion Gap 1 (6-14) Blood Urea Nitrogen 33 mg/dL (7-20) Creatinine 1.6 mg/dL (0.6-1.0) Estimated GFR (Cockcroft-Gault) 31.2 BUN/Creatinine Ratio 21 (6-20) Glucose Level 84 mg/dL (70-99) Calcium Level 7.6 mg/dL (8.5-10.1) Total Bilirubin 1.2 mg/dL (0.2-1.0) Aspartate Amino Transf (AST/SGOT) 24 U/L (15-37) Alanine Aminotransferase (ALT/SGPT) 20 U/L (14-59) Alkaline Phosphatase 65 U/L (46-116) Total Protein 5.7 g/dL (6.4-8.2) Albumin 2.0 g/dL (3.4-5.0) Albumin/Globulin Ratio 0.5 (1.0-1.7) Thyroid Stimulating Hormone (TSH) 3.861 uIU/mL (0.358-3.74) Review of Systems Constitutional: yes: weakness, alert, oriented Ears/Nose/Throat: Yes: no symptom reported Eyes: Yes: no symptom reported Pulmonary: Yes no symptom reported Cardiovascular: Yes edema Gastrointestional: Yes: no symptom reported Genitourinary: Yes: no symptom reported Skin: Yes no symptom reported Psychiatric/Neurological: Yes: no symptom reported Endocrine: Yes: no symptom reported Physical Exam General Appearance: no apparent distress Skin: warm Respiratory: decreased breath sounds Heart: S1S2 Abdomen: soft, bowel sounds present Genitourinary: bladder flat Extremities: pulses present, edema Neurology: alert, oriented Assessment Assessment IMP UTI CHRIS-CR OF 1.6 FROM 2.2-CAN FROM [facility] RELATED HYPONATREMIA-NA UP TO 128 BLADDER OUTLET OBSTRUCTION WITH HYDRONEPHROSIS S/P LEFT URETERAL STENT ANEMIA WITH RETROPERITONEAL HEMATOMA HX AFIB RVR C DIF CAD WITH PTCA/STENT PLAN CONT IVF FOR NOW WILL NEED DIURESIS SOON ANTIBIOTICS CARDIOLOGY EVAL PENDING D/W ATTENDING WILL FOLLOW CARMEN MEDINA MD Dec 16, 2020 10:38
--- NOTE | 2020-12-16 10:45 | NUR ---
Xarelto held due to patient has a hemorrhage.
[2020-12-16 11:00] VITALS: BP 121/44
--- NOTE | 2020-12-16 11:24 | CONS ---
DATE OF CONSULTATION: 12/16/2020 PULMONARY CONSULTATION ATTENDING PHYSICIAN: Zeynep Hess MD. REASON FOR CONSULTATION: History of DVT and retroperitoneal hemorrhage. HISTORY OF PRESENT ILLNESS: The patient is a 80-year-old female with a BMI of 36. The patient was at [facility] and then has a very prolonged hospital stay, then has been to [facility]. She was initially admitted on 11/16 with septic shock due to urinary tract infection. She was also found to have ureteral stone and incidental right kidney mass. The patient also reportedly had a left sided pleural effusion, which secondary to acute diastolic CHF. She had an EF of 60-65%. The patient also developed atrial fibrillation and acute on chronic kidney injury. The patient also had a non-ST segment myocardial infarction. She was also reportedly had left lower extremity DVT. She was treated with Xarelto. The patient was brought into the hospital with a complaint of some shortness of breath. She was noted to have a low sodium. The patient was weak. She was noted to have a retroperitoneal hemorrhage on her CT scan. The patient has no longer been on Xarelto. I have been asked to see her for further evaluation of the possibility of IVC filter. PAST MEDICAL HISTORY: Significant for insulin-dependent diabetes, history of retinopathy, neuropathy and nephropathy. History of left ureter history of chronic kidney disease, history of CHF, history of pleural effusion, history of left lower extremity DVT about a month ago, history of hypothyroidism. PAST SURGICAL HISTORY: Significant for breast biopsy, hysterectomy, endometrial cancer. She also had a left retroperitoneal hematoma while at [facility]. ALLERGIES: LISINOPRIL, SULFA AND AVOCADO AND TOMATO. MEDICATIONS: Reviewed as listed in the MRAD. REVIEW OF SYSTEMS: A 12-point system obtained. Pertinent positives discussed in my present illness, otherwise noncontributory. All systems that were negative were reviewed as well. SOCIAL HISTORY: She is a nonsmoker and nonalcoholic. PHYSICAL EXAMINATION: VITAL SIGNS: Reviewed. Pulse ox 95% on room air. NECK: Supple. LUNGS: Clear. CARDIOVASCULAR: With a regular rate. ABDOMEN: Soft, nontender. EXTREMITIES: With leg edema, mild. LABORATORY DATA: Reviewed. Her hemoglobin was 6.7 on admission, now 8.1. White cell count normal. Sodium 128. BUN 33 and creatinine 1.6. TSH 3.8. IMPRESSION: 1. The patient with a history of left lower extremity deep venous thrombosis at an outside facility over a month ago. She was treated with Xarelto, but she was having nosebleeds. She also developed a retroperitoneal hemorrhage at [facility]. She has been off of Xarelto. I repeated a venous Doppler of lower extremities today and she no longer has deep venous thrombosis. As such, I do not see a need for IVC filter. 2. No significant tobacco history. 3. Chronic kidney disease, question acute component. 4. History of urinary tract infection and septic shock. 5. History of a right kidney mass. Status post coiling. RECOMMENDATIONS: 1. I have discussed with Dr. Hess. At this time, there is no need for IVC filter since there is no evidence of DVT in her lower extremities venous Doppler 2. We will be available for any further recommendations. 3. Follow renal recommendation. 4. Follow cardiology recommendation regarding atrial fibrillation and any need for further treatment without anticoagulation. 5. We will see charity OSMAN DR: Silverio TID: [id number]
--- NOTE | 2020-12-16 11:30 | NUR ---
Wound/Ostomy Care Wound Type/Assessment: Patient seen per wound care consult. See wound assessment. 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 Patient stated she has been having multiple loose stools a day and there are many of those times where she is incontinent of her bowels. therefore causing wounds and irritation. Wound cleansed and assessed. Treatment Recommendations/Plan: Recommendations for Calazime cream or [place] cream which patient is requesting at this time. Patient stated she has tried the calazime and A&D ointment and neither has worked for her. Hansel okay with wound care if patient wishes to use instead of calazime. Patient encouraged to only sit on bottom for meals only and to lay from left to right while in bed. Education provided: patient on wound care and PU prevention. Offloading surface/device: Patient is currently on a P-500 bed, patient to turn every 2 hours, up in chair for meals only. Recommended Referrals/Tests: Patient may follow up with us in the wound clinic if patient wishes to do so after discharge/rehab. patient given clinic information and will call for appointment if needed. Discharge Recommendations for dressings: Dressing change instructions left in room. Wound care will follow up on per the patient request for reassessment. Patient's daughter to bring in Hansel for this patient. Patient in chair for lunch with call light in reach.
--- NOTE | 2020-12-16 12:27 | NUR ---
SW following. Discussed with RN. SW verified pt is a SNF resident at [facility], and can return when medically stable (after review), room air, ada deit. Therapy ordered. Pt will need a COVID test prior to discharge. BOBBY will continue to follow.
[2020-12-16] MEDS: MULTIVITAMIN with MINERAL TABLET. PO SCH (12:30)
[2020-12-16] MEDS: ASCORBIC ACID 500 MG TABLET PO SCH (12:30)
[2020-12-16] MEDS: METOPROLOL SUCC 24HR ER 25 MG TAB.ER.24H. PO SCH (12:34)
[2020-12-16] MEDS: AMIODARONE HCL 200 MG TABLET. PO SCH (12:35)
--- NOTE | 2020-12-16 14:25 | PN ---
DATE: 12/16/2020 SUBJECTIVE: The patient is resting, slightly propped up in bed, in no apparent respiratory distress, awake, and alert, stating she is anxious and frustrated. She has been in bed for a long time; however, on the good side, her H and H has been stable and her serum sodium has risen to 128, her creatinine came down to 1.6 mg. She was seen in consultation by the kidney specialist, news technical director as well as manager battery. Dr. Buenrostro ordered venous Doppler ultrasound of both lower extremities before proceeding with IVC filter and Dr. Esquivel recommended a Watchman procedure for her as she is bleeding and she has large retroperitoneal hematoma and has multiple episodes of epistaxis. PHYSICAL EXAMINATION: GENERAL: When I examined her this morning, she was pale, but not jaundiced or cyanosed. No lymphadenopathy. No thyromegaly. No jugular venous distention. Lower limb edema. VITAL SIGNS: Her heart rate was 74, blood pressure was 97/33, temperature was 98.2, respiratory rate was 18 and oxygen saturation was 95%. HEAD, EYES, EARS, NOSE, AND THROAT: Normocephalic, atraumatic. NECK: Supple. HEART: Showed normal first and second heart sounds. No gallop, rub or murmur. CHEST: Shows central trachea, equal bilateral expansion, air entry, vesicular breath sounds. No crepitation or rhonchi. ABDOMEN: Distended, soft, and nontender. She has an indwelling Dasilva catheter. She had two bowel movements last night. NEUROLOGIC: She is awake and alert, responding appropriately. Cranial nerves intact. She moves extremities without difficulty, although she is mostly bedbound. EXTREMITIES: She has multiple wounds, bilateral gluteal areas. Her intake over the last 24 hours was 750, output was 3500. LABORATORY DATA: This morning showed her white cell count to be 5100, hemoglobin 8.1, hematocrit 23, MCV 92 and platelet count 204,000. Her chemistry showed a serum sodium of 128, potassium 4.5, chloride 97, bicarbonate 30, anion gap of 1, BUN 33, and creatinine 1.6. Estimated GFR was 31 mL per minute. Her glucose was 84, calcium was 7.6. Total bilirubin, AST, ALT, and alkaline phosphatase were normal. Total protein was 5.7, albumin 2 and TSH was 3.861. ASSESSMENT: 1. Hyponatremia. The serum sodium has improved today to 128 mEq per liter. 2. Acute on chronic kidney injury, improving. Her serum creatinine is down to 1.6, it has peaked up to 2.7 as she had severe urinary tract infection and pyelonephritis. Did receive contrast for cardiac catheterization and was hypotensive while at [facility]. 3. Bladder outlet obstruction and bilateral hydroureter and hydronephrosis, status post drainage of about 1500 mL. She has an indwelling Dasilva catheter. She apparently has a ureteral stent to the left side. 4. Anemia due to blood loss as she has large retroperitoneal hematoma and has multiple episodes of nosebleed as she is on Xarelto. She did receive 1 unit of packed RBCs 2 days ago. I held her Xarelto. I have consulted the manager battery as well as the news technical director as she probably need an IVC filter and Watchman procedure. 5. She went into atrial fibrillation with rapid ventricular response that required cardioversion at [facility]. 6. Clostridium difficile colitis. The patient continued to be on isolation as she continued to have episodes of loose bowel movement. She is on oral vancomycin and lactobacillus. 7. Coronary artery disease, status post cardiac catheterization with PCI and stent deployment at [facility]. 8. She also has a history of large left sided pleural effusion, status post thoracentesis on 11/2020. PLAN: To continue with fluid restriction. Continue to monitor her H and H and transfuse her as needed. The patient is scheduled for bilateral lower extremity venous Doppler ultrasound to decide whether an IVC filter is warranted and Cardiology team recommended Watchman procedure as she continued to bleed and has large left sided retroperitoneal hematoma. LOGAN DR: Jose Alfredo TID: [id number]
[2020-12-16 15:00] VITALS: BP 140/46
[2020-12-16 18:50] LABS: HEMOGLOBIN 8.3 g/dL (12.0-15.5)
[2020-12-16 19:00] VITALS: BP 145/52
[2020-12-16] MEDS: TAMSULOSIN 0.4 MG CAP.ER.24H. PO SCH (21:35)
[2020-12-16] MEDS: ATORVASTATIN CALCIUM 40 MG TABLET. PO SCH (21:36)
[2020-12-16 22:36] VITALS: BP 134/62
[2020-12-17 03:00] VITALS: BP 105/32
[2020-12-17] MEDS: IV NORMAL SALINE 1000ML BAG 1,000 ML IV SCH ×2 (05:30→18:10)
[2020-12-17 06:41] LABS: HEMATOCRIT 23.5 % (36.0-47.0)
[2020-12-17 07:00] VITALS: BP 111/34
[2020-12-17 07:01] LABS: CALCIUM 7.5 mg/dL (8.5-10.1); CREATININE 1.5 mg/dL (0.6-1.0); GFR 33.6; POTASSIUM 4.6 mmol/L (3.5-5.1)
[2020-12-17] MEDS: LACTOBACILLUS RHAMNOSUS GG 1 CAPSULE. PO SCH ×2 (08:07→21:13)
[2020-12-17] MEDS: LINAGLIPTIN 5 MG TABLET PO SCH (08:07)
[2020-12-17] MEDS: MULTIVITAMIN with MINERAL TABLET. PO SCH (08:07)
[2020-12-17] MEDS: ASCORBIC ACID 500 MG TABLET PO SCH (08:07)
[2020-12-17] MEDS: LEVOTHYROXINE 100 MCG TABLET PO SCH (08:07)
[2020-12-17] MEDS: AMIODARONE HCL 200 MG TABLET. PO SCH (08:08)
[2020-12-17] MEDS: METOPROLOL SUCC 24HR ER 25 MG TAB.ER.24H. PO SCH (08:08)
[2020-12-17] MEDS: VANCOMYCIN 125 MG/2.5 ML ORAL SOLUTION. PO SCH ×4 (08:09→21:34)
[2020-12-17] MEDS: INSULIN LISPRO 300 UNITS/3 ML VIAL. SQ SCH ×3 (08:42→16:57)
--- NOTE | 2020-12-17 10:10 | PN ---
DATE: 12/17/2020 SUBJECTIVE: The patient is resting, slightly propped up in bed, in no apparent distress On questioning her, she denied any complaint. Nursing staff did not voice any concern, stated that she had uneventful night. She has 2 bowel movements overnight. She was seen by the physical and occupational therapist, has been ambulating with a walker. She is now on air loss mattress. PHYSICAL EXAMINATION: GENERAL: When I examined her, she looked pale, not jaundiced or cyanosed. No thyromegaly. No jugular venous distention. No limb edema. VITAL SIGNS: Her heart rate was 74, blood pressure is 111/34, temperature was 98, respiratory rate was 18 and oxygen saturation was 93% on room air. HEAD, EYES, EARS, NOSE AND THROAT: Normocephalic, atraumatic. NECK: Supple. HEART: Showed normal first and second heart sounds. No gallop, rub or murmur. CHEST: Clear to auscultation. No crepitation or rhonchi. ABDOMEN: Distended, soft, nontender. NEUROLOGIC: She was grossly intact. She had an indwelling Dasilva catheter. Her intake was incompletely recorded, output was 4420. LABORATORY DATA: As of this morning, her serum sodium was 131, potassium 4.6, chloride 100, bicarbonate 28, anion gap of 3, BUN 24, creatinine 1.5. Estimated GFR was 33 mL per minute. Her glucose 97, calcium was 7.5. Her hemoglobin and hematocrit remained stable around 8 and 24. ASSESSMENT: 1. Hyponatremia, improving slowly. Today's serum sodium was 131. 2. Acute on chronic kidney injury, improving. Her serum creatinine is down to 1.5 and has peaked up to 2.7. She had severe urinary tract infection, pyelonephritis. Did receive contrast for cardiac catheterization and was hypotensive while at [facility]. 3. Bladder outlet obstruction, bilateral hydroureter and hydronephrosis, status post drainage of about 1500 mL. She has an indwelling Dasilva catheter. She apparently has a ureteral stent to the left side. 4. Anemia due to blood loss. She has large left sided retroperitoneal hematoma and has had multiple episodes of nosebleeds as she is on Xarelto. She did receive 1 unit of packed RBCs and her hemoglobin and hematocrit are stable. 5. She had a venous Doppler ultrasound showed no evidence of deep vein thrombosis and Dr. Buenrostro recommended against anticoagulation. The Cardiology team who recommended a Watchman procedure. 6. The patient went into atrial fibrillation with rapid ventricular response that required cardioversion at [facility]. 7. Clostridium difficile colitis. The patient continued to have to be on isolation as she continued to have episodes of loose bowel movement. She is on oral vancomycin and lactobacillus. 8. Right coronary artery disease, status post cardiac catheterization with PCI and stent deployment at [facility] 9. History of large left sided pleural effusion, status post thoracentesis on 11/27/2020. PLAN: To continue with fluid restriction. Continue to monitor her H and H and transfuse her as needed. Her venous Doppler ultrasound showed no evidence of deep vein thrombosis and Dr. Buenrostro did not recommend placement of IVC filter. Meanwhile, we will continue with physical and occupational therapy and if she remains stable tomorrow, she can be discharged back to [facility] to continue the process of rehabilitation. CAROLIN DR: Jose Alfredo TID: [id number]
[2020-12-17] MEDS: INSULIN GLARGINE SYRINGE. SQ SCH ×2 (10:16→21:22)
--- NOTE | 2020-12-17 10:31 | PDOC ---
Renal-Progress Notes Subjective Notes Notes NO NEW COMPLAINTS History of Present Illness Hx of present illness STABLE Vitals Vitals Vital Signs Date Time Temp Pulse Resp B/P (MAP) Pulse Ox O2 Delivery O2 Flow Rate FiO2 12/17/20 08:08 74 111/34 12/17/20 07:00 98.0 18 93 Room Air 98.0 Weight Weight [ ] I.O. Intake and Output Intake and Output 12/17/20 07:00 Intake Total 2543 ml Output Total 2225 ml Balance 318 ml Intake Oral 1543 ml IV Total 1000 ml Output Urine Total 2225 ml # Voids 1 # Bowel Movements 2 Labs Labs Laboratory Tests Test 12/16/20 11:11 12/16/20 16:16 12/16/20 18:30 12/16/20 21:51 Glucose (Fingerstick) 121 mg/dL (70-99) 157 mg/dL (70-99) 189 mg/dL (70-99) Hemoglobin 8.3 g/dL (12.0-15.5) Hematocrit 24.0 % (36.0-47.0) Test 12/17/20 06:10 12/17/20 07:08 Hemoglobin 8.0 g/dL (12.0-15.5) Hematocrit 23.5 % (36.0-47.0) Sodium Level 131 mmol/L (136-145) Potassium Level 4.6 mmol/L (3.5-5.1) Chloride Level 100 mmol/L (98-107) Carbon Dioxide Level 28 mmol/L (21-32) Anion Gap 3 (6-14) Blood Urea Nitrogen 24 mg/dL (7-20) Creatinine 1.5 mg/dL (0.6-1.0) Estimated GFR (Cockcroft-Gault) 33.6 Glucose Level 97 mg/dL (70-99) Calcium Level 7.5 mg/dL (8.5-10.1) Glucose (Fingerstick) 134 mg/dL (70-99) Review of Systems Constitutional: yes: weakness, alert, oriented Ears/Nose/Throat: Yes: no symptom reported Eyes: Yes: no symptom reported Pulmonary: Yes no symptom reported Cardiovascular: Yes edema Gastrointestional: Yes: no symptom reported Genitourinary: Yes: no symptom reported Skin: Yes no symptom reported Psychiatric/Neurological: Yes: no symptom reported Endocrine: Yes: no symptom reported Physical Exam General Appearance: no apparent distress Skin: warm Respiratory: decreased breath sounds Heart: S1S2 Abdomen: soft, bowel sounds present Genitourinary: bladder flat Extremities: pulses present, edema Neurology: alert, oriented Assessment Assessment IMP UTI CHRIS-CR OF 1.5 FROM 2.2-CAN FROM [facility] RELATED HYPONATREMIA-NA UP TO 131 BLADDER OUTLET OBSTRUCTION WITH HYDRONEPHROSIS S/P LEFT URETERAL STENT ANEMIA WITH RETROPERITONEAL HEMATOMA HX AFIB RVR C DIF CAD WITH PTCA/STENT PLAN CONT IVF FOR NOW WILL NEED DIURESIS SOON ANTIBIOTICS CARDIOLOGY EVAL PENDING D/W ATTENDING WILL FOLLOW CARMEN MEDINA MD Dec 17, 2020 10:31
--- NOTE | 2020-12-17 10:47 | CONS ---
DATE OF CONSULTATION: 12/17/2020 REFERRING PHYSICIAN: Zeynep Hses MD REASON FOR CONSULTATION:UTI,C diff colitis HISTORY OF PRESENT ILLNESS: A 80-year-old female was brought to [facility] for Hyponatremia. She was transferred to [place] for rehab with complicated medical history with prolonged stay October and early Nov at [facility] with septic shock due to complicated UTI with obstructive uropathy. The patient was found to have left ureteral stone and incidental right kidney mass. She was treated with IV antibiotics for UTI, underwent LT ureteric stent placement. She developed C difficile colitis, AFib, CHF,Retroperitoneal Hematoma, left lower extremity DVT. and was transferred to [place], where she was there for rehabilitation. She was on p.o. antibiotics on 11/16/2020. Urine culture there was positive for E. coli. The patient was treated with p.o. antibiotics at [place]. Currently, she is on PO Vanc for C difficile colitis. ID consultation has been requested to assist with any further antibiotics pt would need. Pt feels much better. Frequency of diarrhea has improved. She denies any fevers, chills, nausea, vomiting, abdominal pain, chest pain, shortness of breath. She feels much better. Appetite has improved. She is scheduled to see Urology from [facility] end of this month for followup of ureteric stent. The patient underwent a Dasilva placement here at [facility]. PAST MEDICAL HISTORY: As above, diabetes mellitus, complicated by retinopathy, neuropathy and nephropathy, left ureteric stone, status post stent placement, CKD, chronic diastolic heart failure, left lower extremity DVT, AFib, hypothyroidism. PAST SURGICAL HISTORY: Reviewed. SOCIAL HISTORY: She denies smoking, ETOH or illicit drug use. Lives with , has 5 children. CURRENT MEDICATIONS: P.o. vancomycin. Other medications reviewed in medication list. ALLERGIES: SULFA, AVOCADO, LISINOPRIL, TOMATO. REVIEW OF SYSTEMS: Negative except for above in HPI. PHYSICAL EXAMINATION: VITAL SIGNS: Afebrile, stable. GENERAL: Alert, oriented x 3, pleasant female, obese, in no acute distress, smiling. HEENT: Normocephalic, atraumatic. Anicteric. Oral mucosa moist. NECK: Supple. LUNGS: Decreased breath sounds at the bases, otherwise clear. HEART: S1, S2. ABDOMEN: Soft, nontender, nondistended, obese. GENITOURINARY: Dasilva in place. NEUROLOGIC: Alert and oriented x3, grossly nonfocal. PSYCHIATRIC: Calm and cooperative. EXTREMITIES: 2+ edema. DERMATOLOGIC: Warm, dry, no generalized rash except for perianal area, excoriated, improving per patient. LABORATORY DATA: WBC 5.1, hemoglobin 8.0, hematocrit 23.5, platelets 204. UA shows large blood, large leukocyte esterase, wbc's feel obscured. Sodium 131, potassium 4.6, chloride 100, bicarbonate 28, BUN 24, creatinine 1.5, down from 2.2. IMAGING: CT abdomen, chest and pelvis reviewed. Lower extremity Doppler negative for DVT. IMPRESSION: 1. Urinary tract infection. Urine culture negative from 12/14/2020 so far. 2. Clostridium difficile colitis, improving on p.o. vancomycin. 3. Acute kidney injury with chronic kidney disease. 4. Hyponatremia. 5. Obstructive uropathy with hydronephrosis, status post left ureteral stent at [facility]. 6. Retroperitoneal hematoma. 7. Anemia. 8. Atrial fibrillation. 9. Coronary artery disease. 10. History of left lower extremity deep venous thrombosis. Doppler ultrasound negative here for deep venous thrombosis. 11. Diabetes with retinopathy and nephropathy. 12. Left ureteric stent. 13. Congestive heart failure. RECOMMENDATIONS: 1. Continue p.o. vancomycin for a total of 14 days. 2. Would not treat UTI at this time as could be colonization and has no bacterial growth on urine cultures so far from 12/14/2020. 3. If urine culture returns positive, pt will need antibiotic treatment depending on the bacteria. 4. The patient needs to follow up with urology for stent management. 6. The patient remains at risk of recurrence of UTI due to stent in place 7. Continue supportive care. 8. Monitor labs and cultures. Thank you, Dr. Hess for consulting Infectious Disease to participate in this patient's care. If you have any questions, do not hesitate to contact me. Discussed with Dr. Hess about the same. ELIAZAR CARTER: Balta TID: [id number] [facility]
[2020-12-17 11:00] VITALS: BP 115/41
--- NOTE | 2020-12-17 11:42 | PDOC ---
BRO MATTHEWS MEMORIAL DESIGNER 12/17/20 1142: CARDIO Progress Notes Date and Time Date of Service 12/17/2020 Time of Evaluation 1130 Subjective Subjective: No Chest Pain, No shortness of breath, No Palpitations Vitals Vitals Vital Signs Date Time Temp Pulse Resp B/P (MAP) Pulse Ox O2 Delivery O2 Flow Rate FiO2 12/17/20 08:08 74 111/34 12/17/20 08:00 Room Air 12/17/20 07:00 98.0 18 93 98.0 Weight Weight [ ] Input and Output Intake and Output Intake and Output 12/17/20 07:00 Intake Total 2543 ml Output Total 2225 ml Balance 318 ml Intake Oral 1543 ml IV Total 1000 ml Output Urine Total 2225 ml # Voids 1 # Bowel Movements 2 Laboratory Labs Laboratory Tests Test 12/16/20 16:16 12/16/20 18:30 12/16/20 21:51 12/17/20 06:10 Glucose (Fingerstick) 157 mg/dL (70-99) 189 mg/dL (70-99) Hemoglobin 8.3 g/dL (12.0-15.5) 8.0 g/dL (12.0-15.5) Hematocrit 24.0 % (36.0-47.0) 23.5 % (36.0-47.0) Sodium Level 131 mmol/L (136-145) Potassium Level 4.6 mmol/L (3.5-5.1) Chloride Level 100 mmol/L (98-107) Carbon Dioxide Level 28 mmol/L (21-32) Anion Gap 3 (6-14) Blood Urea Nitrogen 24 mg/dL (7-20) Creatinine 1.5 mg/dL (0.6-1.0) Estimated GFR (Cockcroft-Gault) 33.6 Glucose Level 97 mg/dL (70-99) Calcium Level 7.5 mg/dL (8.5-10.1) Test 12/17/20 07:08 12/17/20 10:41 Glucose (Fingerstick) 134 mg/dL (70-99) 122 mg/dL (70-99) Review of Systems Constitutional: yes: weakness, alert, oriented Ears/Nose/Throat: Yes: no symptom reported Eyes: Yes: no symptom reported Pulmonary: Yes no symptom reported Cardiovascular: Yes edema Gastrointestional: Yes: no symptom reported Genitourinary: Yes: no symptom reported Skin: Yes no symptom reported Psychiatric/Neurological: Yes: no symptom reported Endocrine: Yes: no symptom reported Physical Exam HEENT: Neck Supple W Full Motion Chest: Symmetric LUNGS: Other (diminished) Heart: RRR (SR) Abdomen: Soft N/T, Other (obese) Extremities: Other (4+ bilateral LE pitting edema) Neurology: alert, oriented, follow commands Assessment Assessment 1. Paroxysmal atrial fibrillation: Presently in sinus rhythm. Continue amiodarone for rhythm maintenance. She is a poor candidate for long-term anticoagulation secondary to retroperitoneal hematoma. Recent 2D echo showed LVEF 60 to 65%. We will consider outpatient referral for left atrial appendage closure. 2. Chronic diastolic heart failure: Appears to be clinically well compensated. Her bilateral lower extremity edema is probably secondary to hypoalbuminemia. Lasix x1 3. Recent non-STEMI: Most probably demand ischemia. Nuclear stress test apparently was normal. We will obtain records from [facility]. 4. Acute on chronic renal insufficiency: CT abdomen showed bilateral hydronephrosis and hydroureters. Nephrology team following. 5. Hyponatremia: Sodium 128 today. Continue fluid restriction. 6. Hypertension: Controlled 7. Recent DVT: Consider IVC filter placement since she is a poor candidate for long-term anticoagulation 8. Hypothyroidism: Continue levothyroxine 9. Hyperlipidemia: Continue statins 10. Diabetes mellitus type 2: Treat per IM 11. C. difficile colitis: On oral vancomycin Justicifation of Admission Dx: Justifications for Admission: Justification of Admission Dx: N/A RIKI RENDON MD 12/17/20 1459: CARDIO Progress Notes Assessment Assessment Patient seen and examined. Agree with LADLE REPAIRMAN's assessment and plan. PAF maintaining sinus rhythm. Continue amiodarone for rhythm maintenance. She is poor candidate for long-term anticoagulation. Plan outpatient referral for left atrial appendage closure. Chronic diastolic heart failure well compensated. Continue fluid restriction for hyponatremia. Nephrology following. Consider IVC filter placement for recent DVT. Continue current treatment for C. difficile colitis. BRO MATTHEWS APRN Dec 17, 2020 11:42 RIKI RENDON MD Dec 17, 2020 14:59
[2020-12-17] MEDS ORDERED: FUROSEMIDE 40 MG/4 ML VIAL. IVP ONE (12:00)
[2020-12-17 14:33] VITALS: BP 112/39
[2020-12-17 19:00] VITALS: BP 122/39
[2020-12-17] MEDS: TAMSULOSIN 0.4 MG CAP.ER.24H. PO SCH (21:13)
[2020-12-17] MEDS: ATORVASTATIN CALCIUM 40 MG TABLET. PO SCH (21:14)
[2020-12-17 23:00] VITALS: BP 122/45
[2020-12-18 03:00] VITALS: BP 119/39
[2020-12-18 05:56] LABS: CALCIUM 7.3 mg/dL (8.5-10.1); CREATININE 1.5 mg/dL (0.6-1.0); GFR 33.6; POTASSIUM 4.2 mmol/L (3.5-5.1)
[2020-12-18 07:00] VITALS: BP 122/54
[2020-12-18] MEDS: IV NORMAL SALINE 1000ML BAG 1,000 ML IV SCH (07:10)
[2020-12-18] MEDS: INSULIN LISPRO 300 UNITS/3 ML VIAL. SQ SCH ×3 (08:00→17:27)
[2020-12-18] MEDS: ASCORBIC ACID 500 MG TABLET PO SCH (08:58)
[2020-12-18] MEDS: LINAGLIPTIN 5 MG TABLET PO SCH (08:58)
[2020-12-18] MEDS: VANCOMYCIN 125 MG/2.5 ML ORAL SOLUTION. PO SCH ×4 (08:58→20:31)
[2020-12-18] MEDS: MULTIVITAMIN with MINERAL TABLET. PO SCH (08:58)
[2020-12-18] MEDS: LACTOBACILLUS RHAMNOSUS GG 1 CAPSULE. PO SCH ×2 (08:58→20:31)
[2020-12-18] MEDS: LEVOTHYROXINE 100 MCG TABLET PO SCH (08:58)
[2020-12-18] MEDS: AMIODARONE HCL 200 MG TABLET. PO SCH (08:58)
[2020-12-18] MEDS: METOPROLOL SUCC 24HR ER 25 MG TAB.ER.24H. PO SCH (08:59)
[2020-12-18] MEDS: INSULIN GLARGINE SYRINGE. SQ SCH ×2 (09:00→20:36)
[2020-12-18 10:56] VITALS: BP 138/51
--- NOTE | 2020-12-18 11:04 | NUR ---
SW following. Discussed with RN, possible discharge back to [place] tomorrow. SW faxed clinicals and notified [place]. SW requested COVID test for return to facility. SW will continue to follow.
--- NOTE | 2020-12-18 11:14 | PN ---
DATE: 12/18/2020 SUBJECTIVE: The patient is resting, slightly propped up in bed, in no apparent respiratory distress. She is frustrated and would like to go back to the rehab center. She is otherwise doing well. PHYSICAL EXAMINATION: GENERAL: When I examined her, she looked pale, but not jaundiced or cyanosed. No thyromegaly. No jugular venous distention. No limb edema. VITAL SIGNS: Her heart rate was 71, blood pressure was 122/54, temperature 98.8, respiratory rate was 16, and oxygen saturation was 97%. HEAD, EYES, EARS, NOSE, AND THROAT: Normocephalic, atraumatic. NECK: Supple. HEART: Showed normal first and second heart sounds, no gallop or murmur. CHEST: Clear to auscultation. No crepitation or rhonchi. ABDOMEN: Distended, soft, nontender. NEUROLOGIC: She was grossly intact. Her intake was 2543, output was 2225. LABORATORY DATA: This morning, her most recent H and H was 8 and 24. Her chemistry showed a serum sodium of 132, potassium 4.3, chloride 103, bicarbonate 29, anion gap of 0, BUN 21, creatinine 1.5, estimated GFR was 33 mL per minute, her glucose was 77 and calcium was 7.3. ASSESSMENT: 1. Hyponatremia, improving. Her most recent serum sodium is up to 132 mEq per liter. 2. Acute on chronic kidney injury, improving. Her serum creatinine is down to 1.5. The creatinine has peaked to 2.7. At that time, she had severe infection, pyelonephritis, treated at that time with contrast for cardiac catheterization and was hypertensive while at [facility]. 3. Bladder outlet obstruction with bilateral hydroureter and hydronephrosis, status post drainage of about 1500 mL. She has an indwelling Dasilva catheter. She apparently has a ureteral stent on the left side. 4. Anemia due to blood loss. She has large left-sided retroperitoneal hematoma and has had multiple episodes of nosebleed while she was on Xarelto. She did receive 1 unit of packed RBCs and her hemoglobin and hematocrit have been stable. 5. She had a venous Doppler ultrasound that showed no evidence of deep vein thrombosis and Dr. Buenrostro recommended against anticoagulation and against IVC filter. 6. Cardiology team recommended a Watchman procedure. 7. The patient went into atrial fibrillation with rapid ventricular response that required cardioversion at [facility]. 8. Clostridium difficile colitis. The patient has had no further diarrhea since Wednesday. She continues to be on oral vancomycin. 9. Right coronary artery disease, status post cardiac catheterization with percutaneous coronary intervention and stent deployment. 10. History of large left-sided pleural effusion, status post thoracentesis on 12/05/2020. PLAN: To discontinue IV fluid. Continue with fluid restriction. I will repeat all her lab works. We will swab her for COVID and will be discharged tomorrow to [facility]. FLIP/RON DR: Jose Alfredo TID: [id number]
--- NOTE | 2020-12-18 11:35 | PDOC ---
BRO MATTHEWS SOFTWARE VALIDATION ENGINEER 12/18/20 1135: CARDIO Progress Notes Date and Time Date of Service 12/18/2020 Time of Evaluation 1050 Subjective Subjective: No Chest Pain, No shortness of breath, No Palpitations Vitals Vitals Vital Signs Date Time Temp Pulse Resp B/P (MAP) Pulse Ox O2 Delivery O2 Flow Rate FiO2 12/18/20 10:56 98.3 70 16 138/51 (80) 96 Room Air 98.3 Weight Weight [ ] Input and Output Intake and Output Intake and Output 12/18/20 07:00 Intake Total 640 ml Output Total 3300 ml Balance -2660 ml Intake Oral 640 ml Output Urine Total 3300 ml Laboratory Labs Laboratory Tests Test 12/17/20 16:38 12/17/20 20:14 12/18/20 03:31 12/18/20 05:15 Glucose (Fingerstick) 137 mg/dL (70-99) 125 mg/dL (70-99) 83 mg/dL (70-99) Sodium Level 132 mmol/L (136-145) Potassium Level 4.2 mmol/L (3.5-5.1) Chloride Level 103 mmol/L (98-107) Carbon Dioxide Level 29 mmol/L (21-32) Anion Gap 0 (6-14) Blood Urea Nitrogen 21 mg/dL (7-20) Creatinine 1.5 mg/dL (0.6-1.0) Estimated GFR (Cockcroft-Gault) 33.6 Glucose Level 77 mg/dL (70-99) Calcium Level 7.3 mg/dL (8.5-10.1) Test 12/18/20 06:52 Glucose (Fingerstick) 94 mg/dL (70-99) Microbiology Micro Microbiology 12/15/20 Urine Culture - Final, Complete Review of Systems Constitutional: yes: weakness, alert, oriented Ears/Nose/Throat: Yes: no symptom reported Eyes: Yes: no symptom reported Pulmonary: Yes no symptom reported Cardiovascular: Yes edema Gastrointestional: Yes: no symptom reported Genitourinary: Yes: no symptom reported Skin: Yes no symptom reported Psychiatric/Neurological: Yes: no symptom reported Endocrine: Yes: no symptom reported Physical Exam HEENT: Neck Supple W Full Motion Chest: Symmetric LUNGS: Other (diminished) Heart: RRR (SR) Abdomen: Soft N/T, Other (obese) Extremities: Other (4+ bilateral LE pitting edema) Neurology: alert, oriented, follow commands Assessment Assessment 1. Paroxysmal atrial fibrillation: Presently in sinus rhythm. Continue amiodarone for rhythm maintenance. She is a poor candidate for long-term anticoagulation secondary to retroperitoneal hematoma. Recent 2D echo showed LVEF 60 to 65%. We will consider outpatient referral for left atrial appendage closure. 2. Chronic diastolic heart failure: Appears to be clinically well compensated. excellent UOP. Follow up in office 3. Recent non-STEMI: Most probably demand ischemia. Nuclear stress test apparently was normal. 4. Acute on chronic renal insufficiency: CT abdomen showed bilateral hydronephrosis and hydroureters. Nephrology team following. 5. Hyponatremia: per nephrology 6. Hypertension: Controlled 7. Recent DVT: Consider IVC filter placement since she is a poor candidate for long-term anticoagulation 8. Hypothyroidism: Continue levothyroxine 9. Hyperlipidemia: Continue statins 10. Diabetes mellitus type 2: Treat per IM 11. C. difficile colitis: On oral vancomycin Justicifation of Admission Dx: Justifications for Admission: Justification of Admission Dx: N/A RIKI RENDON MD 12/19/20 1137: CARDIO Progress Notes Assessment Assessment Patient seen and examined 12/18/2020. Agree with CNC SUPERVISOR's assessment and plan. PAF maintaining sinus rhythm. Continue amiodarone for rhythm maintenance. She is poor candidate for long-term anticoagulation. Plan outpatient referral for left atrial appendage closure. Chronic diastolic heart failure well compensated. Continue fluid restriction for hyponatremia. Nephrology following. Consider IVC filter placement for recent DVT. Continue current treatment for C. difficile colitis. BRO MATTHEWS APRN Dec 18, 2020 11:35 RIKI RENDON MD Dec 19, 2020 11:37
--- NOTE | 2020-12-18 11:54 | PDOC ---
Renal-Progress Notes Subjective Notes Notes NO NEW COMPLAINTS History of Present Illness Hx of present illness STABLE Vitals Vitals Vital Signs Date Time Temp Pulse Resp B/P (MAP) Pulse Ox O2 Delivery O2 Flow Rate FiO2 12/18/20 10:56 98.3 70 16 138/51 (80) 96 Room Air 98.3 Weight Weight [ ] I.O. Intake and Output Intake and Output 12/18/20 07:00 Intake Total 640 ml Output Total 3300 ml Balance -2660 ml Intake Oral 640 ml Output Urine Total 3300 ml Labs Labs Laboratory Tests Test 12/17/20 16:38 12/17/20 20:14 12/18/20 03:31 12/18/20 05:15 Glucose (Fingerstick) 137 mg/dL (70-99) 125 mg/dL (70-99) 83 mg/dL (70-99) Sodium Level 132 mmol/L (136-145) Potassium Level 4.2 mmol/L (3.5-5.1) Chloride Level 103 mmol/L (98-107) Carbon Dioxide Level 29 mmol/L (21-32) Anion Gap 0 (6-14) Blood Urea Nitrogen 21 mg/dL (7-20) Creatinine 1.5 mg/dL (0.6-1.0) Estimated GFR (Cockcroft-Gault) 33.6 Glucose Level 77 mg/dL (70-99) Calcium Level 7.3 mg/dL (8.5-10.1) Test 12/18/20 06:52 12/18/20 11:32 Glucose (Fingerstick) 94 mg/dL (70-99) 102 mg/dL (70-99) Micro Micro Microbiology 12/15/20 Urine Culture - Final, Complete Review of Systems Constitutional: yes: weakness, alert, oriented Ears/Nose/Throat: Yes: no symptom reported Eyes: Yes: no symptom reported Pulmonary: Yes no symptom reported Cardiovascular: Yes edema Gastrointestional: Yes: no symptom reported Genitourinary: Yes: no symptom reported Skin: Yes no symptom reported Psychiatric/Neurological: Yes: no symptom reported Endocrine: Yes: no symptom reported Physical Exam General Appearance: no apparent distress Skin: warm Respiratory: decreased breath sounds Heart: S1S2 Abdomen: soft, bowel sounds present Genitourinary: bladder flat Extremities: pulses present, edema Neurology: alert, oriented, follow commands Assessment Assessment IMP UTI CHRIS-CR OF 1.5 FROM 2.2-CAN FROM [facility] RELATED HYPONATREMIA-NA UP TO 132 HYDRONEPHROSIS - S/P LEFT URETERAL STENT ANEMIA WITH RETROPERITONEAL HEMATOMA HX AFIB RVR C DIF CAD WITH PTCA/STENT PLAN STOP IVF'S START DIURESING D/W ATTENDING WILL FOLLOW CARMEN MEDINA MD Dec 18, 2020 11:53
[2020-12-18] MEDS ORDERED: FUROSEMIDE 40 MG/4 ML VIAL. IVP ONE (12:00)
[2020-12-18 15:00] VITALS: BP 113/36
--- NOTE | 2020-12-18 16:38 | PDOC ---
Infectious Disease Note Subjective Subjective pt is feeling good, has no diarrhea, no abd pain ROS ROS no n/v/d/sob/fever Vital Sign Vital Signs Vital Signs Date Time Temp Pulse Resp B/P (MAP) Pulse Ox O2 Delivery O2 Flow Rate FiO2 12/18/20 15:00 98.3 74 16 113/36 (61) 92 Room Air 98.3 Physical Exam PHYSICAL EXAM GENERAL: Alert, oriented x 3, pleasant female, obese, in no acute distress, smiling. HEENT: Normocephalic, atraumatic. Anicteric. Oral mucosa moist. NECK: Supple. LUNGS: Decreased breath sounds at the bases, otherwise clear. HEART: S1, S2. ABDOMEN: Soft, nontender, nondistended, obese. GENITOURINARY: Dasilva in place. NEUROLOGIC: Alert and oriented x3, grossly nonfocal. PSYCHIATRIC: Calm and cooperative. EXTREMITIES: 2+ edema. DERMATOLOGIC: Warm, dry, no generalized rash except for perianal area, excoriated, improving per patient. Labs Lab Laboratory Tests Test 12/17/20 16:38 12/17/20 20:14 12/18/20 03:31 12/18/20 05:15 Glucose (Fingerstick) 137 mg/dL (70-99) 125 mg/dL (70-99) 83 mg/dL (70-99) Sodium Level 132 mmol/L (136-145) Potassium Level 4.2 mmol/L (3.5-5.1) Chloride Level 103 mmol/L (98-107) Carbon Dioxide Level 29 mmol/L (21-32) Anion Gap 0 (6-14) Blood Urea Nitrogen 21 mg/dL (7-20) Creatinine 1.5 mg/dL (0.6-1.0) Estimated GFR (Cockcroft-Gault) 33.6 Glucose Level 77 mg/dL (70-99) Calcium Level 7.3 mg/dL (8.5-10.1) Test 12/18/20 06:52 12/18/20 11:32 12/18/20 16:33 Glucose (Fingerstick) 94 mg/dL (70-99) 102 mg/dL (70-99) 153 mg/dL (70-99) Micro Microbiology 12/15/20 Urine Culture - Final, Complete Objective Assessment 1. Urinary tract infection. Urine culture negative from 12/14/2020 so far. 2. Clostridium difficile colitis, improving on p.o. vancomycin. 3. Acute kidney injury with chronic kidney disease. 4. Hyponatremia. 5. Obstructive uropathy with hydronephrosis, status post left ureteral stent at [facility]. 6. Retroperitoneal hematoma. 7. Anemia. 8. Atrial fibrillation. 9. Coronary artery disease. 10. History of left lower extremity deep venous thrombosis. Doppler ultrasound negative here for deep venous thrombosis. 11. Diabetes with retinopathy and nephropathy. 12. Left ureteric stent. 13. Congestive heart failure. Plan Plan of Care cont po vancomycin for 10 days avoid any other antibiotics unless absolutely necessary Do not do urine culture without symptoms or fever and if needed do straight cath this was d/w daughter in detail Recurrence possibility discussed probiotics advised JED HERNANDEZ MD Dec 18, 2020 16:38
[2020-12-18] MEDS: FUROSEMIDE 40 MG TABLET. PO SCH (16:43)
[2020-12-18 19:00] VITALS: BP 140/51
[2020-12-18] MEDS: ATORVASTATIN CALCIUM 40 MG TABLET. PO SCH (20:31)
[2020-12-18] MEDS: TAMSULOSIN 0.4 MG CAP.ER.24H. PO SCH (20:31)
[2020-12-18 23:00] VITALS: BP 123/43
[2020-12-19 03:00] VITALS: BP 115/53
[2020-12-19 07:00] VITALS: BP 131/53
[2020-12-19 07:32] LABS: HEMATOCRIT 23.3 % (36.0-47.0); HEMOGLOBIN 7.7 g/dL (12.0-15.5); RED BLOOD COUNT 2.5 x10^6/uL (3.50-5.40); RED CELL DISTRIBUTION WIDTH 17.1 % (11.5-14.5); WHITE BLOOD COUNT 9.2 x10^3/uL (4.0-11.0)
[2020-12-19 07:51] LABS: ALBUMIN 2.1 g/dL (3.4-5.0); ALBUMIN/GLOBULIN RATIO 0.6 (1.0-1.7); CALCIUM 7.6 mg/dL (8.5-10.1); CREATININE 1.5 mg/dL (0.6-1.0); GFR 33.6; MAGNESIUM 1.6 mg/dL (1.8-2.4); POTASSIUM 4.1 mmol/L (3.5-5.1); TOTAL BILIRUBIN 1.1 mg/dL (0.2-1.0); TOTAL PROTEIN 5.9 g/dL (6.4-8.2)
[2020-12-19] MEDS: INSULIN LISPRO 300 UNITS/3 ML VIAL. SQ SCH ×2 (08:00→12:00)
[2020-12-19] MEDS: LACTOBACILLUS RHAMNOSUS GG 1 CAPSULE. PO SCH (09:00)
[2020-12-19] MEDS: VANCOMYCIN 125 MG/2.5 ML ORAL SOLUTION. PO SCH ×2 (09:00→12:16)
[2020-12-19] MEDS: LEVOTHYROXINE 100 MCG TABLET PO SCH (09:01)
[2020-12-19] MEDS: LINAGLIPTIN 5 MG TABLET PO SCH (09:01)
[2020-12-19] MEDS: AMIODARONE HCL 200 MG TABLET. PO SCH (09:01)
[2020-12-19] MEDS: MULTIVITAMIN with MINERAL TABLET. PO SCH (09:01)
[2020-12-19] MEDS: METOPROLOL SUCC 24HR ER 25 MG TAB.ER.24H. PO SCH (09:01)
[2020-12-19] MEDS: FUROSEMIDE 40 MG TABLET. PO SCH (09:02)
[2020-12-19] MEDS: ASCORBIC ACID 500 MG TABLET PO SCH (09:02)
--- NOTE | 2020-12-19 09:13 | SNU/HH DC ---
DISCHARGE ORDERS DISCHARGE INFORMATION: DISCHARGE DATE: Dec 19, 2020 FINAL DIAGNOSIS hyponatremia Acute on chronic kidney injury blood loss anemia atrial fibrillation C Diff Colitis CONDITION ON DISCHARGE: Stable CODE STATUS: Code Status: Full NURSING HOME: SNF STAY <30 DAYS: Yes POST DISCHARGE ORDERS: ACTIVITY ORDERS: Activity as tolerated DIET AFTER DISCHARGE: Cardiac TREATMENT/EQUIPMENT ORDERS: Physical Therapy For: Evalulation/Treatment Occupational Therapy For: Evaluation/Treatment DISCHARGE MEDICATIONS: Home Meds Reported Medications Rivaroxaban (XARELTO) 15 Mg Tablet, 1 TAB PO BID for A FIB for 21 Days, #42 TAB 0 Refills 12/14/20 Vancomycin Hcl (VANCOMYCIN HCL) 125 Mg Capsule, 1 CAP PO QID for C. DIFF for 10 Days, #40 CAP 0 Refills 12/14/20 Metoprolol Succinate (METOPROLOL SUCCINATE ( XL )) 25 Mg Tab.er.24h, 1 TAB PO BID for HTN, #30 TAB 5 Refills 12/14/20 Tamsulosin Hcl (FLOMAX) 0.4 Mg Cap.er.24h, 1 CAP PO HS for RETENTIOM, #30 CAP 11 Refills 12/14/20 Hydrocodone/Acetaminophen (Hydrocodone-Acetamin 5-325 mg) 1 Each Tablet, 1 EACH PO PRN Q4HRS PRN for PAIN, TAB 12/14/20 Levothyroxine Sodium (SYNTHROID) 100 Mcg Tablet, 1 TAB PO DAILY for HYPOTHYROIDISM, #30 TAB 5 Refills 12/14/20 Insulin Glargine,Hum.rec.anlog (LANTUS) 100 Unit/1 Ml Vial, 20 UNIT SQ BID for DM II, EACH 12/14/20 Lactobacillus Acidophilus (ACIDOPHILUS) 1 Each Capsule, 1 CAP PO BID for C DIFF for 14 Days, #28 CAP 0 Refills 12/14/20 Sitagliptin Phosphate (JANUVIA) 25 Mg Tablet, 25 MG PO DAILY for DM II , TAB 12/14/20 Insulin Lispro (HUMALOG) 100 Unit/1 Ml Vial, 4 UNIT SQ TIDWMEALS for DM II , EACH 12/14/20 Cyclobenzaprine Hcl (CYCLOBENZAPRINE HCL) 5 Mg Tablet, 1 TAB PO PRN TID PRN for PAIN, #30 TAB 12/14/20 Atorvastatin Calcium (LIPITOR) 80 Mg Tablet, 1 TAB PO HS for HLD , #30 TAB 5 Refills 12/14/20 Amiodarone Hcl (AMIODARONE HCL) 200 Mg Tablet, 1 TAB PO DAILY for AFIB, #90 TAB 1 Refill 12/14/20 Acetaminophen (ACETAMINOPHEN) 500 Mg Tablet, 1 TAB PO PRN Q4HRS PRN for pain or fever for 15 Days, #60 TAB 0 Refills 12/14/20 BENJAMÍN NEWTON MD Dec 19, 2020 09:13
[2020-12-19] MEDS ORDERED: MAGNESIUM SULFATE 2GM 50 ML IV ONE (09:15)
[2020-12-19] MEDS: INSULIN GLARGINE SYRINGE. SQ SCH (09:40)
--- NOTE | 2020-12-19 10:23 | NUR ---
BOBBY following. Discussed with RN, discharge orders faxed to [place], awaiting transportation time. BOBBY will continue to follow. Addendum: 12/19/20 at 1125 by FESTUS ROSALES Transportation arranged by [place] for [id number]. RN notified.
[2020-12-19 11:00] VITALS: BP 133/42
--- NOTE | 2020-12-19 11:14 | PDOC ---
Renal-Progress Notes Subjective Notes Notes STABLE History of Present Illness Hx of present illness DOING WELL Vitals Vitals Vital Signs Date Time Temp Pulse Resp B/P (MAP) Pulse Ox O2 Delivery O2 Flow Rate FiO2 12/19/20 09:01 70 131/53 12/19/20 07:00 98.1 18 93 Room Air 98.1 Weight Weight [ ] I.O. Intake and Output Intake and Output 12/19/20 07:00 Intake Total 2155 ml Output Total 2150 ml Balance 5 ml Intake Oral 1055 ml IV Total 1100 ml Output Urine Total 2150 ml Labs Labs Laboratory Tests Test 12/18/20 11:32 12/18/20 16:33 12/18/20 19:56 12/19/20 06:25 Glucose (Fingerstick) 102 mg/dL (70-99) 153 mg/dL (70-99) 206 mg/dL (70-99) White Blood Count 9.2 x10^3/uL (4.0-11.0) Red Blood Count 2.50 x10^6/uL (3.50-5.40) Hemoglobin 7.7 g/dL (12.0-15.5) Hematocrit 23.3 % (36.0-47.0) Mean Corpuscular Volume 93 fL (79-100) Mean Corpuscular Hemoglobin 31 pg (25-35) Mean Corpuscular Hemoglobin Concent 33 g/dL (31-37) Red Cell Distribution Width 17.1 % (11.5-14.5) Platelet Count 209 x10^3/uL (140-400) Sodium Level 134 mmol/L (136-145) Potassium Level 4.1 mmol/L (3.5-5.1) Chloride Level 101 mmol/L (98-107) Carbon Dioxide Level 29 mmol/L (21-32) Anion Gap 4 (6-14) Blood Urea Nitrogen 20 mg/dL (7-20) Creatinine 1.5 mg/dL (0.6-1.0) Estimated GFR (Cockcroft-Gault) 33.6 BUN/Creatinine Ratio 13 (6-20) Glucose Level 73 mg/dL (70-99) Calcium Level 7.6 mg/dL (8.5-10.1) Magnesium Level 1.6 mg/dL (1.8-2.4) Total Bilirubin 1.1 mg/dL (0.2-1.0) Aspartate Amino Transf (AST/SGOT) 22 U/L (15-37) Alanine Aminotransferase (ALT/SGPT) 18 U/L (14-59) Alkaline Phosphatase 66 U/L (46-116) Total Protein 5.9 g/dL (6.4-8.2) Albumin 2.1 g/dL (3.4-5.0) Albumin/Globulin Ratio 0.6 (1.0-1.7) Test 12/19/20 07:58 Glucose (Fingerstick) 78 mg/dL (70-99) Micro Micro Microbiology 12/15/20 Urine Culture - Final, Complete Review of Systems Constitutional: yes: weakness, alert, oriented Ears/Nose/Throat: Yes: no symptom reported Eyes: Yes: no symptom reported Pulmonary: Yes no symptom reported Cardiovascular: Yes edema Gastrointestional: Yes: no symptom reported Genitourinary: Yes: no symptom reported Skin: Yes no symptom reported Psychiatric/Neurological: Yes: no symptom reported Endocrine: Yes: no symptom reported Physical Exam General Appearance: no apparent distress Skin: warm Respiratory: decreased breath sounds Heart: S1S2 Abdomen: soft, bowel sounds present Genitourinary: bladder flat Extremities: pulses present, edema Neurology: alert, oriented, follow commands Assessment Assessment IMP UTI CHRIS-CR OF 1.5 FROM 2.2-CAN FROM [facility] RELATED HYPONATREMIA-NA UP TO 134 HYDRONEPHROSIS - S/P LEFT URETERAL STENT ANEMIA WITH RETROPERITONEAL HEMATOMA HX AFIB RVR C DIF CAD WITH PTCA/STENT PLAN CONT DIURESING D/W ATTENDING WILL FOLLOW CARMEN MEDINA MD Dec 19, 2020 11:14
--- NOTE | 2020-12-19 13:09 | PDOC ---
Infectious Disease Note Subjective: Subjective pt is feeling good, has no diarrhea, no abd pain Getting ready for transfer back to nursing facility Vital Signs: Vital Signs Vital Signs Date Time Temp Pulse Resp B/P (MAP) Pulse Ox O2 Delivery O2 Flow Rate FiO2 12/19/20 11:00 97.6 64 18 133/42 (72) 92 Room Air 97.6 Physical Exam: PHYSICAL EXAM GENERAL: Alert, oriented x 3, pleasant female, obese, in no acute distress, smiling. HEENT: Normocephalic, atraumatic. Anicteric. Oral mucosa moist. NECK: Supple. LUNGS: Decreased breath sounds at the bases, otherwise clear. HEART: S1, S2. ABDOMEN: Soft, nontender, nondistended, obese. GENITOURINARY: Dasilva in place. NEUROLOGIC: Alert and oriented x3, grossly nonfocal. PSYCHIATRIC: Calm and cooperative. EXTREMITIES: 2+ edema. DERMATOLOGIC: Warm, dry, no generalized rash except for perianal area, excoriated, improving per patient. Medications: Inpatient Meds: Medications reviewed. Labs: Lab Laboratory Tests Test 12/18/20 16:33 12/18/20 19:56 12/19/20 06:25 12/19/20 07:58 Glucose (Fingerstick) 153 mg/dL (70-99) 206 mg/dL (70-99) 78 mg/dL (70-99) White Blood Count 9.2 x10^3/uL (4.0-11.0) Red Blood Count 2.50 x10^6/uL (3.50-5.40) Hemoglobin 7.7 g/dL (12.0-15.5) Hematocrit 23.3 % (36.0-47.0) Mean Corpuscular Volume 93 fL (79-100) Mean Corpuscular Hemoglobin 31 pg (25-35) Mean Corpuscular Hemoglobin Concent 33 g/dL (31-37) Red Cell Distribution Width 17.1 % (11.5-14.5) Platelet Count 209 x10^3/uL (140-400) Sodium Level 134 mmol/L (136-145) Potassium Level 4.1 mmol/L (3.5-5.1) Chloride Level 101 mmol/L (98-107) Carbon Dioxide Level 29 mmol/L (21-32) Anion Gap 4 (6-14) Blood Urea Nitrogen 20 mg/dL (7-20) Creatinine 1.5 mg/dL (0.6-1.0) Estimated GFR (Cockcroft-Gault) 33.6 BUN/Creatinine Ratio 13 (6-20) Glucose Level 73 mg/dL (70-99) Calcium Level 7.6 mg/dL (8.5-10.1) Magnesium Level 1.6 mg/dL (1.8-2.4) Total Bilirubin 1.1 mg/dL (0.2-1.0) Aspartate Amino Transf (AST/SGOT) 22 U/L (15-37) Alanine Aminotransferase (ALT/SGPT) 18 U/L (14-59) Alkaline Phosphatase 66 U/L (46-116) Total Protein 5.9 g/dL (6.4-8.2) Albumin 2.1 g/dL (3.4-5.0) Albumin/Globulin Ratio 0.6 (1.0-1.7) Test 12/19/20 11:42 Glucose (Fingerstick) 101 mg/dL (70-99) Micro RUN DATE: 12/17/20 [facility] *LIVE* PAGE 1 RUN TIME: 1214 Specimen Inquiry PATIENT: HARSHAD CHRISTINE ACCT: [id number] LOC: [address] [place] [address] U: [id number] AGE/SX: 80/F ROOM: 552 RE12/14/[address]: BENJAMÍN NEWOTN MD : 1940 BED: 1 DIS: STATUS: ADM IN TLOC: SPEC #: [id number] RADHA: 12/15/20 STATUS: COMP REQ #: [id number] RECD: 12/15/[address]: BENJAMÍN NEWTON MD SOURCE: URINE CC ENTR: 12/15/[address] [facility] [address]: VAUGHN GROVES MD [facility]: TYLER JUAREZ MD, SABATO MD ORDERED: URINE CULTURE Procedure Result URINE CULTURE Final Final GREATER THAN 100,000 CFU/ML [ARIANA ALBICANS] on 12/17/20 at 1208. NO FURTHER WORKUP. Testing Performed by: [address] [address] For Inquires, the Physician may contact the Microbiology department at [phone] ARIANA ALBICANS Unless otherwise specified, Testing Performed by: [address] [address] For Inquires, the Physician may contact the Microbiology department at [phone] Objective: Assessment: . Urinary tract infection. Urine culture negative from 12/14/2020 so far. 2. Clostridium difficile colitis, improving on p.o. vancomycin. 3. Acute kidney injury with chronic kidney disease. 4. Hyponatremia. 5. Obstructive uropathy with hydronephrosis, status post left ureteral stent at . 6. Retroperitoneal hematoma. 7. Anemia. 8. Atrial fibrillation. 9. Coronary artery disease. 10. History of left lower extremity deep venous thrombosis. Doppler ultrasound negative here for deep venous thrombosis. 11. Diabetes with retinopathy and nephropathy. 12. Left ureteric stent. 13. Congestive heart failure. Plan: Plan of Care cont po vancomycin for 10 days Change Dasilva due to Ariana albicans urine cultures No further antibiotics needed at this time Do not do urine culture without symptoms or fever and if needed do straight cath Recurrence possibility discussed Follow-up with urology for stent management probiotics advised Daughter is aware of above plan Discussed with TRACIE GUERRERO MD Dec 19, 2020 13:09
--- NOTE | 2020-12-19 14:44 | NUR ---
patient discharged to [facility]. report given to staff. IV removed intact. Howard left in place. [facility] staff instructed to change out howard catheter as there was no time to do it here. Howard placed originally on 12/14
--- NOTE | 2020-12-19 16:54 | PDOC ---
PROGRESS NOTES Date of Service: DATE: 12/19/20 TIME: 16:54 Subjective Subjective No new complaints. Wants to go home. Objective Objective Vital Signs Date Time Temp Pulse Resp B/P (MAP) Pulse Ox O2 Delivery O2 Flow Rate FiO2 12/19/20 11:00 97.6 64 18 133/42 (72) 92 Room Air 97.6 Intake and Output 12/19/20 07:00 Intake Total 2155 ml Output Total 2150 ml Balance 5 ml Intake Oral 1055 ml IV Total 1100 ml Output Urine Total 2150 ml Physical Exam Abdomen: Soft, No tenderness Heart: Regular rate Extremities: Other (1-2+ pitting edema) General: Alert, No acute distress HEENT: Atraumatic Lungs: Clear to auscultation Neuro: Normal speech Psych/Mental Status: Mood NL Assessment Assessment 1. Paroxysmal atrial fibrillation: Presently in sinus rhythm. Continue amiodarone for rhythm maintenance. She is a poor candidate for long-term anticoagulation secondary to retroperitoneal hematoma. Recent 2D echo showed LVEF 60 to 65%. We will consider outpatient referral for left atrial appendage closure. 2. Chronic diastolic heart failure: Appears to be clinically well compensated. excellent UOP. Follow up in office 3. Recent non-STEMI: Most probably demand ischemia. Nuclear stress test apparently was normal. 4. Acute on chronic renal insufficiency: CT abdomen showed bilateral hydronephrosis and hydroureters. Nephrology team following. 5. Hyponatremia: per nephrology 6. Hypertension: Controlled 7. Recent DVT: Consider IVC filter placement since she is a poor candidate for long-term anticoagulation 8. Hypothyroidism: Continue levothyroxine 9. Hyperlipidemia: Continue statins 10. Diabetes mellitus type 2: Treat per IM 11. C. difficile colitis: On oral vancomycin Okay for DC from cardiac standpoint. Follow-up with our office as scheduled. Comment Review of Relevant I have reviewed the following items chuck (where applicable) has been applied. Labs Laboratory Tests Test 12/18/20 19:56 12/19/20 06:25 12/19/20 07:58 12/19/20 11:42 Glucose (Fingerstick) 206 mg/dL (70-99) 78 mg/dL (70-99) 101 mg/dL (70-99) White Blood Count 9.2 x10^3/uL (4.0-11.0) Red Blood Count 2.50 x10^6/uL (3.50-5.40) Hemoglobin 7.7 g/dL (12.0-15.5) Hematocrit 23.3 % (36.0-47.0) Mean Corpuscular Volume 93 fL (79-100) Mean Corpuscular Hemoglobin 31 pg (25-35) Mean Corpuscular Hemoglobin Concent 33 g/dL (31-37) Red Cell Distribution Width 17.1 % (11.5-14.5) Platelet Count 209 x10^3/uL (140-400) Sodium Level 134 mmol/L (136-145) Potassium Level 4.1 mmol/L (3.5-5.1) Chloride Level 101 mmol/L (98-107) Carbon Dioxide Level 29 mmol/L (21-32) Anion Gap 4 (6-14) Blood Urea Nitrogen 20 mg/dL (7-20) Creatinine 1.5 mg/dL (0.6-1.0) Estimated GFR (Cockcroft-Gault) 33.6 BUN/Creatinine Ratio 13 (6-20) Glucose Level 73 mg/dL (70-99) Calcium Level 7.6 mg/dL (8.5-10.1) Magnesium Level 1.6 mg/dL (1.8-2.4) Total Bilirubin 1.1 mg/dL (0.2-1.0) Aspartate Amino Transf (AST/SGOT) 22 U/L (15-37) Alanine Aminotransferase (ALT/SGPT) 18 U/L (14-59) Alkaline Phosphatase 66 U/L (46-116) Total Protein 5.9 g/dL (6.4-8.2) Albumin 2.1 g/dL (3.4-5.0) Albumin/Globulin Ratio 0.6 (1.0-1.7) Microbiology 12/15/20 Urine Culture - Final, Complete Medications Current Medications Magnesium Sulfate 50 ml @ 25 mls/hr 1X ONCE IV Last administered on 12/19/20at 09:41; Start 12/19/20 at 09:15; Stop 12/19/20 at 11:14; Status DC Vitals/I & O Vital Sign - Last 24 Hours 12/18/20 12/18/20 12/18/20 12/19/20 19:00 20:00 23:00 03:00 Temp 98.8 98.8 98.8 98.8 98.8 98.8 Pulse 81 78 80 Resp 16 16 16 B/P (MAP) 140/51 (80) 123/43 (69) 115/53 (73) Pulse Ox 94 92 94 O2 Delivery Room Air Room Air Room Air Room Air 12/19/20 12/19/20 12/19/20 12/19/20 07:00 08:00 09:01 09:01 Temp 98.1 98.1 Pulse 70 70 70 Resp 18 B/P (MAP) 131/53 (79) 131/53 131/53 Pulse Ox 93 O2 Delivery Room Air Room Air 12/19/20 11:00 Temp 97.6 97.6 Pulse 64 Resp 18 B/P (MAP) 133/42 (72) Pulse Ox 92 O2 Delivery Room Air Intake and Output 12/18/20 12/18/20 12/19/20 15:00 23:00 07:00 Intake Total 1535 ml 200 ml 420 ml Output Total 1600 ml 550 ml Balance 1535 ml -1400 ml -130 ml RIKI RENDON MD Dec 19, 2020 16:54
--- NOTE | 2020-12-19 17:20 | NUR ---
Wound Care Attempted to follow up for wound care, pt has already been discharged.
== END 2020-12-19 13:31 | DRG 371 ==
LOC: 5 SOUTH 08:39
PROVIDERS: ADMIT Internal Medicine; ATTEND Internal Medicine
PROC: 30233N1 Transfusion of Nonautologous Red Blood Cells into Peripheral Vein, Percutaneous Approach (ICD-10-PCS; principal; 2020-12-14)
DX: A04.72 Enterocolitis due to Clostridium difficile, not specified as recurrent (principal); I21.4 Non-ST elevation (NSTEMI) myocardial infarction; K66.1 Hemoperitoneum; E87.1 Hypo-osmolality and hyponatremia; N17.9 Acute kidney failure, unspecified; I13.0 Hypertensive heart and chronic kidney disease with heart failure and stage 1 through stage 4 chronic kidney disease, or unspecified chronic kidney disease; I50.32 Chronic diastolic (congestive) heart failure; B96.20 Unspecified Escherichia coli [E. coli] as the cause of diseases classified elsewhere; D50.0 Iron deficiency anemia secondary to blood loss (chronic); E03.9 Hypothyroidism, unspecified; E11.22 Type 2 diabetes mellitus with diabetic chronic kidney disease; E11.319 Type 2 diabetes mellitus with unspecified diabetic retinopathy without macular edema; E11.40 Type 2 diabetes mellitus with diabetic neuropathy, unspecified; E78.5 Hyperlipidemia, unspecified; E88.09 Other disorders of plasma-protein metabolism, not elsewhere classified; I25.10 Atherosclerotic heart disease of native coronary artery without angina pectoris; I25.2 Old myocardial infarction; I48.0 Paroxysmal atrial fibrillation; K80.20 Calculus of gallbladder without cholecystitis without obstruction; N18.9 Chronic kidney disease, unspecified; N28.89 Other specified disorders of kidney and ureter; N32.0 Bladder-neck obstruction; R04.0 Epistaxis; Z78.9 Other specified health status; Z79.01 Long term (current) use of anticoagulants; Z79.4 Long term (current) use of insulin; Z85.42 Personal history of malignant neoplasm of other parts of uterus; Z86.718 Personal history of other venous thrombosis and embolism; Z87.440 Personal history of urinary (tract) infections; Z87.442 Personal history of urinary calculi; Z90.710 Acquired absence of both cervix and uterus; Z95.5 Presence of coronary angioplasty implant and graft; R58 Hemorrhage, not elsewhere classified
CPT/HCPCS: 36415; 36430; 71250; 74176; 80048; 80053; 81001; 82962; 83735; 84443; 85007; 85014; 85018; 85025; 85027; 86850; 86900; 86901; 86920; 87077; 87086; 93970; J1815; J1940; J3475; J7030; P9016; U0003; U0005; 97110-GO; 97110-GP; 97530-GO; 97530-GP; 97535-GO; G0378